=== PATIENT | male | born 1940 | race Caucasian/White ===

== ENCOUNTER 2018-05-27 08:38 | Day surgery (SDC) | payer MEDICARE, BC, SELFPAY ==
--- NOTE | 2018-05-26 12:07 | POEE_ITS ---
History of Present Illness Chief Complaint: Progressive decreased vision, right eye Narrative: Patient is a 78-year-old male with history of multiple sclerosis who presented with complaints of progressive decreased vision in both eyes at both distance and near. On examination he was noted to have moderately advanced bilateral nuclear and cortical cataracts with visual acuity of 20/40 OD, 20/60 OS. The option of cataract surgery was offered to the patient and he wished to proceed. NOTE: The Chief Complaint, HPI, Past Medical History, Past Surgical History, Family History, Social History, Medications, and complete Ophthalmic Exam with detailed Assessment and Plan have already been documented in the patient's outpatient ophthalmic record and are not covered again in detail here. [facility] Family History Mother No problems noted. Father Heart disease Hyperlipidemia Sister Diabetes Brother No problems noted. Grandfather No problems noted. Grandfather No problems noted. Grandmother No problems noted. Grandmother No problems noted. Medical History Cortical cataract of right eye (Acute) Nuclear sclerotic cataract of right eye (Acute) Social History household members: other details: 4 current occupational status: retired frequency: 1-2 times per week duration: 30-45 minutes/day Smoking/Tobacco Use Status: Former Tobacco Use alcohol intake: never Meds Home Medications Medication Instructions Recorded Confirmed Type cholecalciferol (vitamin D3) 5,000 unit PO DAILY 11/22/12 05/10/18 History baclofen 10 mg PO TID #270 tab-cap 05/07/15 05/10/18 History cyanocobalamin (vitamin B-12) 1,000 mcg PO DAILY 06/19/15 05/24/18 History amlodipine 5 mg-benazepril 20 mg 1 cap PO DAILY #90 cap 04/22/18 05/24/18 Rx capsule methylphenidate 10 mg tablet 10 mg PO BID #60 tab-cap 04/29/18 05/10/18 Rx pravastatin 20 mg tablet 20 mg PO DAILY #90 tab-cap 05/03/18 05/24/18 Rx Allergies Allergy/AdvReac Type Severity Reaction Status Date / Time weed pollen Allergy Intermediate sneezing, Verified 05/10/18 15:13 body aches and pains Exam OCULAR EXAM:: Visual acuity at distance: 20/40 OD, 20/60 OS Pupils: Pupils equal, round, and reactive without afferent pupillary defect IOP: 13 OD 14 OS Extraocular Motility: Normal Pertinent Slit Lamp Findings: Significant for pupils dilating to 6 mm OU. 3+ brunescent nuclear cataract OU with 1+ cortical cataract. Dilated Funduscopic Examination: Disc cupping is 0.3 OU with normal color. The optic nerves have good perfusion and normal color. The retinal vasculature is normal without significant tortuosity or abnormality. The maculas are normal in appearance with normal contour and foveal reflex appropriate for age. The peripheral retina and vitreous are normal. BRIGHTNESS ACUITY TESTING (BAT):: Off right eye 20/40 Low: 20/40 Medium: 20/50 High: 20/50 Assessment and Plan (1) Nuclear sclerotic cataract of right eye: Current visit: No Status: Acute Assessment: Visually significant cataract, right eye. Plan: Cataract extraction with intraocular lens implantation, right eye (2) Cortical cataract of right eye: Current visit: No Status: Acute Assessment: Visually significant cataract, right eye. Plan: Cataract extraction with intraocular lens implantation, right eye Note: NOTE:: The details of the planned surgery, including the risks, indications, limitations,expectations,outcome and possible complications were explained to the patient. The patient understands the complications including, but not limited to: infection, hemorrhage, posterior dislocation of the lens or nuclear fragments which may require the intervention of a vitreoretinal surgeon, possible loss of the eye, or from anesthetic complications. The patient has been made aware of the option of not having surgery, that vision following surgery may not be equal to that prior to surgery, and that the planned surgery may not achieve the intended results. Following this discussion, which the patient appeared to understand, the patient wishes to proceed with cataract surgery with lens implantation of the affected eye to improve and maximize vision.
--- NOTE | 2018-05-27 07:22 | W.PM.DSUDISC ---
Discharge Plan Discharge Details Reason For Visit: CATARACT OD Attending Provider: Erik Varela Primary Care Provider: Jayesh Duran Home Meds and New Rx's Prescriptions: No Action cholecalciferol (vitamin D3) 5,000 UNIT tablet 5,000 unit PO DAILY RF: 0 baclofen 10 MG tablet 10 mg PO TID Qty: 270 RF: 3 cyanocobalamin (vitamin B-12) 1,000 MCG tablet 1,000 mcg PO DAILY RF: 0 amlodipine-benazepril [Lotrel] 5-20 mg capsule 1 cap PO DAILY Qty: 90 RF: 4 methylphenidate HCl 10 mg tablet 10 mg PO BID Qty: 60 RF: 0 pravastatin [Pravachol] 20 mg tablet 20 mg PO DAILY Qty: 90 RF: 3 Discharge Instructions Stand Alone Forms: Post-op Topical Cataract, Jovan Sorensen (DSU) DS: Diagnosis Discharge Diagnosis (1) Nuclear sclerotic cataract of right eye: Status: Resolved (2) Cortical cataract of right eye: Status: Resolved (3) Status post cataract extraction and insertion of intraocular lens of right eye: Status: Chronic
--- NOTE | 2018-05-27 07:36 | W.PM.OP ---
Date of service: 05/27/18 Operative Note DATE OF PROCEDURE: 05/27/18 PRE-OP DIAGNOSIS: Cataract, right eye POST-OP DIAGNOSIS: same SURGEON: Erik Varela ANESTHESIA: MAC and local (sub-tenon's anesthetic infiltration) PATHOLOGY: none sent COMPLICATIONS: None Patient was transported to: same day Patient's condition: stable Implants: Cash [employer] Cash Vision / [employer] Tecnis [id number] Indications: Progressive decreased vision due to cataract, right eye Procedure Description: CATARACT SURGERY OPERATIVE REPORT PREOPERATIVE DIAGNOSIS: Nuclear/cortical cataract, right eye POSTOPERATIVE DIAGNOSIS: Same OPERATION: Cataract extraction using phacoemulsification with posterior chamber intraocular lens implant, right eye. IOL: IOL Teacher Of The Deaf/Hard Of Hearing/Model: [employer] Vision / MARCELINA Tecnis ZCB00 IOL Power: +[] diopters IOL Serial Number: [] Optic Diameter: 6.0mm Haptic/Overall Diameter: 13.0mm PHACO INFO: LoiAirwareurion Vision System with OZil and Active Fluidics Cumulative Dispersed Energy (CDE): [] seconds SURGEON: Erik Varela MD, ASPEN ANESTHESIA: Monitored Anesthesia Care (MAC), with local sub-tenon's anesthetic infiltration COMPLICATIONS: None SPECIMENS: None INDICATIONS FOR PROCEDURE: [] PROCEDURE: The correct surgical eye was identified and marked as the right eye and the pupil was dilated in the preoperative area using mydriatics, cycloplegics, and NSAIDS (except in aspirin allergic patients). The dilated pupil size was [] mm. Oral sedation was administered in the form of an Imprimis MKO Melt (midazolam 3mg/ketamine 25mg/ondansetron 2mg). The patient was brought to the operating room where cardiopulmonary monitoring was instituted and surgical time-out was performed, confirming the correct operative eye and IOL power. Topical anesthesia was administered and ophthalmic povidone-iodine 5% was instilled into the conjunctival fornices. Lidocaine gel was applied to the cornea and the justin-ocular area was prepped with Betadine 10% solution and draped in the usual sterile fashion for intraocular surgery. Steri-strips were used to cover the lashes and lid margins and an adhesive eye drape was placed. Care was taken to isolate the lashes and lid margins under the Steri-strips and adhesive eye drape. A lid speculum was placed between the lids of the operative eye and the Rupert-Damián operating microscope was maneuvered into position. Denise scissors were then used to make a conjunctival buttonhole approximately 6mm posterior to the limbus in the inferonasal quadrant. Blunt dissection was carried out to expose bare sclera, and a blunt-tipped sub-tenon?s anesthesia cannula was introduced and passed posteriorly along the globe where non-preserved plain lidocaine was injected into posterior sub-Tenon?s space. A sideport knife was used to make a paracentesis port at the 7:00 postion and the anterior chamber was filled with Healon GV. A 2.4mm keratome knife was used to create a half-thickness groove at the limbus and then to construct a three-plane near-clear corneal tunnel extending 2.0mm into clear cornea at the 10:00 position. A flap was raised on the anterior capsule and capsulorhexis forceps were used to complete a continuous curvilinear capsulorhexis of []mm. Balanced salt solution was then used to perform cortical cleaving hydrodissection and nuclear hydrodelineation until the lens could be freely rotated within the capsular bag. The lens nucleus was then disassembled and removed within the capsular bag and iris plane using phacoemulsification. Residual cortical material was removed using the 45-degree angled silicone I/A tip with 0.3mm port. The posterior capsule was carefully polished to remove as much residual lens epithelial cells as safely possible. The capsular bag was then inflated and the anterior chamber deepened with viscoelastic. The lens implant described above was inserted into the capsular bag using the MARCELINA [place] Injector. A Kuglen hook was used to dial the IOL into position. Residual viscoelastic was then removed first from posterior to the IOL, then from the anterior chamber using the I/A handpiece. The lens implant was noted to center nicely within the capsular bag. The incisions were stromally hydrated, and the anterior chamber was reformed using BSS. Then 0.4cc of moxifloxacin 1.5mg/ml were injected into the capsular bag and anterior chamber. The incisions were checked with a Weck spear and found to be secure. Several drops of ophthalmic povidone-iodine 5% were then applied to the eye followed by two drops of Imprimis combination moxifloxacin/dexamethasone solution. The drapes were removed and a clear plastic protective eye shield was placed over the eye. The patient was then returned to Same Day Surgery in stable condition.
[2018-05-27 08:50] VITALS: BP 146/91; PULSE 83; RESP 16; TEMP 35.7; O2SAT 99
[2018-05-27] MEDS: Balanced Salt Soln.-PLUS 500 ML BAG (11:50)
[2018-05-27] MEDS: Lidocaine 2% Jelly 6 ML SYR (11:52)
[2018-05-27] MEDS: Povidone-Iodine Ophth 30 ML BTL (11:59)
[2018-05-27] MEDS: Lidocaine 1% Pres-Free 5 ML VIAL (11:59)
[2018-05-27] MEDS: Trypan Blue 0.06% 0.5 ML SYR (12:10)
--- NOTE | 2018-05-27 17:38 | W.PM.OP ---
Date of service: 05/27/18 Operative Note DATE OF PROCEDURE: 05/27/18 PRE-OP DIAGNOSIS: Cataract, right eye POST-OP DIAGNOSIS: same PROCEDURE: [employer] Vision / [employer] Tecnis [id number] SURGEON: Erik Varela ANESTHESIA: MAC and local (sub-tenon's anesthetic infiltration) PATHOLOGY: none sent COMPLICATIONS: None Patient was transported to: same day Patient's condition: stable Implants: Cash [employer] Cash Vision / [employer] Tecnis [id number] Indications: Progressive visual loss due to cataract, right eye Procedure Description: CATARACT SURGERY OPERATIVE REPORT PREOPERATIVE DIAGNOSIS: 1. Dense nuclear cataract with peripheral corneal haze 2. Poor red reflex secondary to #1 POSTOPERATIVE DIAGNOSIS: Same OPERATION: 1. Cataract extraction using phacoemulsification with posterior chamber intraocular lens implant, right eye. 2. Capsular staining with Vision Blue IOL: IOL Tobacco Stripper Hand/Model: [employer] Cash / MARCELINA Tecnis ZCB00 IOL Power: + 23.5 diopters IOL Serial Number: [id number] Optic Diameter: 6.0mm Haptic/Overall Diameter: 13.0mm PHACO INFO: Loi mydalaurion Vision System with OZil and Active Fluidics Cumulative Dispersed Energy (CDE): 18.66 seconds SURGEON: Erik Varela MD, ASPEN ANESTHESIA: Monitored Anesthesia Care (MAC), with local sub-tenon's anesthetic infiltration COMPLICATIONS: None SPECIMENS: None INDICATIONS FOR PROCEDURE: The patient is a 78-year-old gentleman with history of diminished visual acuity in both eyes. He is noted to have dense bilateral nuclear cataracts as well as a prominent corneal arcus OU. The option of cataract surgery was offered to the patient and he wished to proceed. He has a very hazy peripheral cornea with poor red reflex due to dense cataract. PROCEDURE: The correct surgical eye was identified and marked as the right eye and the pupil was dilated in the preoperative area using mydriatics, cycloplegics, and NSAIDS (except in aspirin allergic patients). The dilated pupil size was 6.0 mm. The patient elected to proceed without oral sedation. The patient was brought to the operating room where cardiopulmonary monitoring was instituted and surgical time-out was performed, confirming the correct operative eye and IOL power. Topical anesthesia was administered and ophthalmic povidone-iodine 5% was instilled into the conjunctival fornices. Lidocaine gel was applied to the cornea and the justin-ocular area was prepped with Betadine 10% solution and draped in the usual sterile fashion for intraocular surgery. Steri-strips were used to cover the lashes and lid margins and an adhesive eye drape was placed. Care was taken to isolate the lashes and lid margins under the Steri-strips and adhesive eye drape. A lid speculum was placed between the lids of the operative eye and the Rupert-Damián operating microscope was maneuvered into position. Denise scissors were then used to make a conjunctival buttonhole approximately 6mm posterior to the limbus in the inferonasal quadrant. Blunt dissection was carried out to expose bare sclera, and a blunt-tipped sub-tenon?s anesthesia cannula was introduced and passed posteriorly along the globe where non-preserved plain lidocaine was injected into posterior sub-Tenon?s space. A sideport knife was used to make a paracentesis port at the 7:00 position. Air was injected into the anterior chamber, followed by Vision Blue, which was painted over the anterior capsule and then irrigated out with BSS. The anterior chamber was filled with Healon GV. A 2.4mm keratome knife was used to create a half-thickness groove at the limbus and then to construct a three-plane near-clear corneal tunnel extending 2.0mm into clear cornea at the 10:00 position. A flap was raised on the anterior capsule and capsulorhexis forceps were used to complete a continuous curvilinear capsulorhexis of 4.5 mm. The anterior chamber was noted to be quite deep. The patient had a prominent arcus, which limited visualization to the central 6 mm. Balanced salt solution was then used to perform cortical cleaving hydrodissection and nuclear hydrodelineation until the lens could be freely rotated within the capsular bag. The lens nucleus was then disassembled and removed within the capsular bag and iris plane using phacoemulsification. Residual cortical material was removed using the 45-degree angled silicone I/A tip with 0.3mm port. The posterior capsule was carefully polished to remove as much residual lens epithelial cells as safely possible. There was some residual subincisional cortical material which was densely adherent which could not be safely removed. The capsular bag was then inflated and the anterior chamber deepened with viscoelastic. The lens implant described above was inserted into the capsular bag using the [employer] Injector. A Kuglen hook was used to dial the IOL into position. Residual viscoelastic was then removed first from posterior to the IOL, then from the anterior chamber using the I/A handpiece. The lens implant was noted to center nicely within the capsular bag. The incisions were stromally hydrated, and the anterior chamber was reformed using BSS. Then 0.4cc of moxifloxacin 1.5mg/ml were injected into the capsular bag and anterior chamber. The incisions were checked with a Weck spear and found to be secure. Several drops of ophthalmic povidone-iodine 5% were then applied to the eye followed by two drops of Imprimis combination moxifloxacin/dexamethasone solution. The drapes were removed and a clear plastic protective eye shield was placed over the eye. The patient was then returned to Same Day Surgery in stable condition.
--- NOTE | 2018-05-27 17:43 | ROE_ITS ---
Date of service: 05/27/18 Operative Note DATE OF PROCEDURE: 05/27/18 PRE-OP DIAGNOSIS: Cataract, right eye POST-OP DIAGNOSIS: same PROCEDURE: [employer] Vision / [employer] Tecnis [id number] SURGEON: Erik Varela ANESTHESIA: MAC and local (sub-tenon's anesthetic infiltration) PATHOLOGY: none sent COMPLICATIONS: None Patient was transported to: same day Patient's condition: stable Implants: Cash [employer] Cash Vision / [employer] Tecnis [id number] Indications: Progressive visual loss due to cataract, right eye Procedure Description: CATARACT SURGERY OPERATIVE REPORT PREOPERATIVE DIAGNOSIS: 1. Dense nuclear cataract with peripheral corneal haze 2. Poor red reflex secondary to #1 POSTOPERATIVE DIAGNOSIS: Same OPERATION: 1. Cataract extraction using phacoemulsification with posterior chamber intraocular lens implant, right eye. 2. Capsular staining with Vision Blue IOL: IOL Head Nurse/Model: Cash [employer] Cash / MARCELINA Tecnis ZCB00 IOL Power: + 23.5 diopters IOL Serial Number: [id number] Optic Diameter: 6.0mm Haptic/Overall Diameter: 13.0mm PHACO INFO: Loi Callvineurion Vision System with OZil and Active Fluidics Cumulative Dispersed Energy (CDE): 18.66 seconds SURGEON: Erik Varela MD, ASPEN ANESTHESIA: Monitored Anesthesia Care (MAC), with local sub-tenon's anesthetic infiltration COMPLICATIONS: None SPECIMENS: None INDICATIONS FOR PROCEDURE: The patient is a 78-year-old gentleman with history of diminished visual acuity in both eyes. He is noted to have dense bilateral nuclear cataracts as well as a prominent corneal arcus OU. The option of cataract surgery was offered to the patient and he wished to proceed. He has a very hazy peripheral cornea with poor red reflex due to dense cataract. PROCEDURE: The correct surgical eye was identified and marked as the right eye and the pupil was dilated in the preoperative area using mydriatics, cycloplegics, and NSAIDS (except in aspirin allergic patients). The dilated pupil size was 6.0 mm. The patient elected to proceed without oral sedation. The patient was brought to the operating room where cardiopulmonary monitoring was instituted and surgical time-out was performed, confirming the correct operative eye and IOL power. Topical anesthesia was administered and ophthalmic povidone-iodine 5% was instilled into the conjunctival fornices. Lidocaine gel was applied to the cornea and the justin-ocular area was prepped with Betadine 10% solution and draped in the usual sterile fashion for intraocular surgery. Steri-strips were used to cover the lashes and lid margins and an adhesive eye drape was placed. Care was taken to isolate the lashes and lid margins under the Steri-strips and adhesive eye drape. A lid speculum was placed between the lids of the operative eye and the Rupert-Damián operating microscope was maneuvered into position. Denise scissors were then used to make a conjunctival buttonhole approximately 6mm posterior to the limbus in the inferonasal quadrant. Blunt dissection was carried out to expose bare sclera, and a blunt-tipped sub-tenon? s anesthesia cannula was introduced and passed posteriorly along the globe where non-preserved plain lidocaine was injected into posterior sub-Tenon?s space. A sideport knife was used to make a paracentesis port at the 7:00 position. Air was injected into the anterior chamber, followed by Vision Blue, which was painted over the anterior capsule and then irrigated out with BSS. The anterior chamber was filled with Healon GV. A 2.4mm keratome knife was used to create a half-thickness groove at the limbus and then to construct a three-plane near-clear corneal tunnel extending 2.0mm into clear cornea at the 10:00 position. A flap was raised on the anterior capsule and capsulorhexis forceps were used to complete a continuous curvilinear capsulorhexis of 4.5 mm. The anterior chamber was noted to be quite deep. The patient had a prominent arcus, which limited visualization to the central 6 mm. Balanced salt solution was then used to perform cortical cleaving hydrodissection and nuclear hydrodelineation until the lens could be freely rotated within the capsular bag. The lens nucleus was then disassembled and removed within the capsular bag and iris plane using phacoemulsification. Residual cortical material was removed using the 45-degree angled silicone I/A tip with 0.3mm port. The posterior capsule was carefully polished to remove as much residual lens epithelial cells as safely possible. There was some residual subincisional cortical material which was densely adherent which could not be safely removed. The capsular bag was then inflated and the anterior chamber deepened with viscoelastic. The lens implant described above was inserted into the capsular bag using the [employer] [place] Injector. A Kuglen hook was used to dial the IOL into position. Residual viscoelastic was then removed first from posterior to the IOL, then from the anterior chamber using the I/A handpiece. The lens implant was noted to center nicely within the capsular bag. The incisions were stromally hydrated , and the anterior chamber was reformed using BSS. Then 0.4cc of moxifloxacin 1.5mg/ml were injected into the capsular bag and anterior chamber. The incisions were checked with a Weck spear and found to be secure. Several drops of ophthalmic povidone-iodine 5% were then applied to the eye followed by two drops of Imprimis combination moxifloxacin/dexamethasone solution. The drapes were removed and a clear plastic protective eye shield was placed over the eye. The patient was then returned to Same Day Surgery in stable condition.
== END 2018-05-27 13:10 | disposition home or self-care (01) ==
LOC: SUR 08:38
PROVIDERS: PCP Emergency Medicine; Visit Provider Ophthalmology
PROC: (CPT 66982; principal; 2018-05-27 11:00)
DX: H25.11 Age-related nuclear cataract, right eye (principal); H35.89 Other specified retinal disorders; I10 Essential (primary) hypertension
CPT/HCPCS: 66982; V2632

== ENCOUNTER 2018-06-10 07:37 | Day surgery (SDC) | payer MEDICARE, BC, SELFPAY ==
--- NOTE | 2018-06-09 12:02 | POEE_ITS ---
History of Present Illness Chief Complaint: Progressive decreased vision, left eye Narrative: NOTE: The Chief Complaint, HPI, Past Medical History, Past Surgical History, Family History, Social History, Medications, and complete Ophthalmic Exam with detailed Assessment and Plan have already been documented in the patient's outpatient ophthalmic record and are not covered again in detail here. PFSH Family History Mother No problems noted. Father Heart disease Hyperlipidemia Sister Diabetes Brother No problems noted. Grandfather No problems noted. Grandfather No problems noted. Grandmother No problems noted. Grandmother No problems noted. Medical History Cortical cataract of right eye (Resolved) Nuclear sclerotic cataract of right eye (Resolved) Social History household members: other details: 4 current occupational status: retired frequency: 1-2 times per week duration: 30-45 minutes/day Smoking/Tobacco Use Status: Former Tobacco Use alcohol intake: never Surgical History Status post cataract extraction and insertion of intraocular lens of right eye ( Chronic 05/27/18) Meds Home Medications Medication Instructions Recorded Confirmed Type cholecalciferol (vitamin D3) 5,000 unit PO DAILY 11/22/12 05/10/18 History baclofen 10 mg PO TID #270 tab-cap 05/07/15 05/27/18 History cyanocobalamin (vitamin B-12) 1,000 mcg PO DAILY 06/19/15 05/10/18 History amlodipine 5 mg-benazepril 20 mg 1 cap PO DAILY #90 cap 04/22/18 05/27/18 Rx capsule methylphenidate 10 mg tablet 10 mg PO BID #60 tab-cap 04/29/18 05/27/18 Rx pravastatin 20 mg tablet 20 mg PO DAILY #90 tab-cap 05/03/18 05/27/18 Rx Allergies Allergy/AdvReac Type Severity Reaction Status Date / Time weed pollen Allergy Intermediate sneezing, Verified 05/27/18 08:45 body aches and pains Exam OCULAR EXAM:: Visual acuity at distance: [] Pupils: [] IOP: [] Extraocular Motility: [] Pertinent Slit Lamp Findings: [] Dilated Funduscopic Examination: [] BRIGHTNESS ACUITY TESTING (BAT):: Off [] Low:[] Medium:[] High:[] Note: NOTE:: The details of the planned surgery, including the risks, indications, limitations,expectations,outcome and possible complications were explained to the patient. The patient understands the complications including, but not limited to: infection, hemorrhage, posterior dislocation of the lens or nuclear fragments which may require the intervention of a vitreoretinal surgeon, possible loss of the eye, or from anesthetic complications. The patient has been made aware of the option of not having surgery, that vision following surgery may not be equal to that prior to surgery, and that the planned surgery may not achieve the intended results. Following this discussion, which the patient appeared to understand, the patient wishes to proceed with cataract surgery with lens implantation of the affected eye to improve and maximize vision.
--- NOTE | 2018-06-09 12:07 | POEE_ITS ---
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 He was significantly symptomatic from cataract that he desired cataract surgery which was performed OD on 05/27/18. Best corrected vision has improved to 20/25 OD, he now presents for ce/iol OS. NOTE: The Chief Complaint, HPI, Past Medical History, Past Surgical History, Family History, Social History, Medications, and complete Ophthalmic Exam with detailed Assessment and Plan have already been documented in the patient's outpatient ophthalmic record and are not covered again in detail here. FOR[facility]LY [facility], [facility] Family History Mother No problems noted. Father Heart disease Hyperlipidemia Sister Diabetes Brother No problems noted. Grandfather No problems noted. Grandfather No problems noted. Grandmother No problems noted. Grandmother No problems noted. Medical History Cortical cataract of left eye (Acute) Nuclear sclerotic cataract of left eye (Acute) Cortical cataract of right eye (Resolved) Nuclear sclerotic cataract of right eye (Resolved) Social History household members: other details: 4 current occupational status: retired frequency: 1-2 times per week duration: 30-45 minutes/day Smoking/Tobacco Use Status: Former Tobacco Use alcohol intake: never Surgical History Status post cataract extraction and insertion of intraocular lens of right eye ( Chronic 05/27/18) Meds Home Medications Medication Instructions Recorded Confirmed Type cholecalciferol (vitamin D3) 5,000 unit PO DAILY 11/22/12 05/10/18 History baclofen 10 mg PO TID #270 tab-cap 05/07/15 05/27/18 History cyanocobalamin (vitamin B-12) 1,000 mcg PO DAILY 06/19/15 05/10/18 History amlodipine 5 mg-benazepril 20 mg 1 cap PO DAILY #90 cap 04/22/18 05/27/18 Rx capsule methylphenidate 10 mg tablet 10 mg PO BID #60 tab-cap 04/29/18 05/27/18 Rx pravastatin 20 mg tablet 20 mg PO DAILY #90 tab-cap 05/03/18 05/27/18 Rx Allergies Allergy/AdvReac Type Severity Reaction Status Date / Time weed pollen Allergy Intermediate sneezing, Verified 05/27/18 08:45 body aches and pains Exam OCULAR EXAM:: Visual acuity at distance: Best corrected 20/25 right eye, 20/40 left eye. Pupils: Pupils equal, round, and reactive without afferent pupillary defect IOP: 13 OD 14 OS Extraocular Motility: Normal Pertinent Slit Lamp Findings: Significant for pupils dilating to 6 mm OU. Well- positioned PCIOL OD with clear posterior capsule. 3+ nuclear with 1+ cortical cataract OS. Dilated Funduscopic Examination: Disc cupping is 0.3 OU with good color. The optic nerves have good perfusion and normal color. The retinal vasculature is normal without significant tortuosity or abnormality. The maculas are normal in appearance with normal contour and foveal reflex appropriate for age. The peripheral retina and vitreous are normal. BRIGHTNESS ACUITY TESTING (BAT):: Off left eye 20/50 Low: 20/50 Medium: 20/70 High: 20/100 Assessment and Plan (1) Nuclear sclerotic cataract of left eye: Current visit: No Status: Acute Assessment: Visually significant cataract, left eye. Plan: Cataract extraction with intraocular lens implantation, left eye (2) Cortical cataract of left eye: Current visit: No Status: Acute Assessment: Visually significant cataract, left eye. Plan: Cataract extraction with intraocular lens implantation, left eye Note: NOTE:: The details of the planned surgery, including the risks, indications, limitations,expectations,outcome and possible complications were explained to the patient. The patient understands the complications including, but not limited to: infection, hemorrhage, posterior dislocation of the lens or nuclear fragments which may require the intervention of a vitreoretinal surgeon, possible loss of the eye, or from anesthetic complications. The patient has been made aware of the option of not having surgery, that vision following surgery may not be equal to that prior to surgery, and that the planned surgery may not achieve the intended results. Following this discussion, which the patient appeared to understand, the patient wishes to proceed with cataract surgery with lens implantation of the affected eye to improve and maximize vision.
[2018-06-10 07:51] VITALS: BP 123/79; PULSE 77; RESP 16; TEMP 35.6; O2SAT 98
[2018-06-10] MEDS: Tetracaine 0.5% 4 ML BTL OS ×4 (08:07→09:20)
[2018-06-10] MEDS: Tropicam./Phenyleph. (1/2.5%) 5 ML BTL ×3 (08:07→08:14)
[2018-06-10] MEDS: Lidocaine 2% Jelly 6 ML SYR (09:20)
[2018-06-10] MEDS: Balanced Salt Soln.-PLUS 500 ML BAG (09:25)
[2018-06-10] MEDS: Lidocaine 1% Pres-Free 5 ML VIAL (09:25)
[2018-06-10] MEDS: Trypan Blue 0.06% 0.5 ML SYR (09:30)
[2018-06-10] MEDS: Povidone-Iodine Ophth 30 ML BTL (09:50)
--- NOTE | 2018-06-10 10:00 | W.PM.DSUDISC ---
Discharge Plan Discharge Details Reason For Visit: CATARACT OS Attending Provider: Erik Varela Primary Care Provider: Jayesh Duran Home Meds and New Rx's Prescriptions: No Action cholecalciferol (vitamin D3) 5,000 UNIT tablet 5,000 unit PO DAILY RF: 0 baclofen 10 MG tablet 10 mg PO TID Qty: 270 RF: 3 cyanocobalamin (vitamin B-12) 1,000 MCG tablet 1,000 mcg PO DAILY RF: 0 amlodipine-benazepril [Lotrel] 5-20 mg capsule 1 cap PO DAILY Qty: 90 RF: 4 methylphenidate HCl 10 mg tablet 10 mg PO BID Qty: 60 RF: 0 pravastatin [Pravachol] 20 mg tablet 20 mg PO DAILY Qty: 90 RF: 3 Discharge Instructions Stand Alone Forms: Post-op Topical Cataract, Jovan Sorensen (DSU) DS: Diagnosis Discharge Diagnosis (1) Nuclear sclerotic cataract of left eye: Status: Resolved (2) Cortical cataract of left eye: Status: Resolved (3) Status post cataract extraction and insertion of intraocular lens of left eye: Status: Chronic (4) Status post cataract extraction and insertion of intraocular lens of right eye: Status: Chronic
--- NOTE | 2018-06-10 10:04 | W.PM.OP ---
Date of service: 06/10/18 Time of Service: 10:04 Operative Note DATE OF PROCEDURE: 06/10/18 PRE-OP DIAGNOSIS: Cataract, left eye, with poor red reflex POST-OP DIAGNOSIS: same PROCEDURE: Cataract extraction using phacoemulsification with intraocular lens implant, left eye, using capsular staining with Vision Blue SURGEON: Erik Varela ANESTHESIA: MAC (with local sub-tenon's anesthetic injection) COMPLICATIONS: None Patient was transported to: same day Patient's condition: stable Implants: Cash and Cash / [employer] Tecnis [id number] Indications: Progressive decreased vision due to cataract, left eye, with poor red reflex Procedure Description: CATARACT SURGERY OPERATIVE REPORT PREOPERATIVE DIAGNOSIS: 1. Dense nuclear cataract, left eye, with dense corneal arcus 2. Poor red reflex secondary to #1 POSTOPERATIVE DIAGNOSIS: Same OPERATION: 1. Cataract extraction using phacoemulsification with posterior chamber intraocular lens implant, left eye. 2. Capsular staining with Vision Blue IOL: IOL Branch Examiner/Model: Cash & Cash / MARCELINA Tecnis [id number] IOL Power: + 20.5 diopters IOL Serial Number: [id number] Optic Diameter: 6.0 mm Haptic/Overall Diameter: 13.0 mm PHACO INFO: Loi Centurion Vision System with OZil and Active Fluidics Cumulative Dispersed Energy (CDE): 15.0 to seconds SURGEON: Erik Varela MD, ASPEN ANESTHESIA: Monitored [facility] (MAC), with local sub-tenon's anesthetic infiltration COMPLICATIONS: None SPECIMENS: None INDICATIONS FOR PROCEDURE: The patient is a 78-year-old male with history of dense bilateral nuclear cataracts. He was significantly symptomatically he desired cataract surgery and attempt to improve and maximize his vision. He has already undergone cataract surgery in the right eye and is doing well postoperatively. He now presents for cataract surgery in the left eye. He has very dense corneal arcus OU PROCEDURE: The correct surgical eye was identified and marked as the left eye and the pupil was dilated in the preoperative area using mydriatics and cycloplegics. Elected to proceed without oral sedation the patient was brought to the operating room where cardiopulmonary monitoring was instituted and surgical time-out was performed, confirming the correct operative eye and IOL power. Topical anesthesia was administered and ophthalmic povidone-iodine 5% was instilled into the conjunctival fornices. Lidocaine gel was applied to the cornea and the justin-ocular area was prepped with Betadine 10% solution and draped in the usual sterile fashion for intraocular surgery. Steri-strips were used to cover the lashes and lid margins and an adhesive eye drape was placed. Care was taken to isolate the lashes and lid margins under the Steri-strips and adhesive eye drape. A lid speculum was placed between the lids of the operative eye and the Rupert-Damián operating microscope was maneuvered into position. Denise scissors were then used to make a conjunctival buttonhole approximately 6mm posterior to the limbus in the inferonasal quadrant. Blunt dissection was carried out to expose bare sclera, and a blunt-tipped sub-tenon?s anesthesia cannula was introduced and passed posteriorly along the globe where non-preserved plain lidocaine was injected into posterior sub-Tenon?s space. A sideport knife was used to make a paracentesis port at the 12:00 position. Air was injected into the anterior chamber, followed by Vision Blue, which was painted over the anterior capsule and then irrigated out using BSS. The anterior chamber was filled with Healon GV. A 2.4mm keratome knife was used to create a half-thickness groove at the limbus and then to construct a three-plane near-clear corneal tunnel extending 2.0mm into clear cornea at the 3:00 position. A flap was raised on the anterior capsule and capsulorhexis forceps were used to complete a continuous curvilinear capsulorhexis of 4.5 mm. Visualization was challenging due to dense peripheral corneal arcus Balanced salt solution was then used to perform cortical cleaving hydrodissection and nuclear hydrodelineation until the lens could be freely rotated within the capsular bag. The lens nucleus was then disassembled and removed within the capsular bag and iris plane using phacoemulsification. Residual cortical material was removed using the 45-degree angled silicone I/A tip with 0.3mm port. The posterior capsule was carefully polished to remove as much residual lens epithelial cells as safely possible. The capsular bag was then inflated and the anterior chamber deepened with viscoelastic. The lens implant described above was inserted into the capsular bag using the MARCELINA [place] Injector. A Kuglen hook was used to dial the IOL into position. Residual viscoelastic was then removed first from posterior to the IOL, then from the anterior chamber using the I/A handpiece. The lens implant was noted to center nicely within the capsular bag. The incisions were stromally hydrated, and the anterior chamber was reformed using BSS. Then 0.4cc of moxifloxacin 1.5mg/ml were injected into the capsular bag and anterior chamber. The incisions were checked with a Weck spear and found to be secure. Several drops of ophthalmic povidone-iodine 5% were then applied to the eye followed by two drops of Imprimis combination moxifloxacin/dexamethasone solution. The drapes were removed and a clear plastic protective eye shield was placed over the eye. The patient was then returned to Same Day Surgery in stable condition.
--- NOTE | 2018-06-10 10:08 | ROE_ITS ---
Date of service: 06/10/18 Time of Service: 10:04 Operative Note DATE OF PROCEDURE: 06/10/18 PRE-OP DIAGNOSIS: Cataract, left eye, with poor red reflex POST-OP DIAGNOSIS: same PROCEDURE: Cataract extraction using phacoemulsification with intraocular lens implant, left eye, using capsular staining with Vision Blue SURGEON: Erik Varela ANESTHESIA: MAC (with local sub-tenon's anesthetic injection) COMPLICATIONS: None Patient was transported to: same day Patient's condition: stable Implants: Cash and Cash / [employer] Tecnis [id number] Indications: Progressive decreased vision due to cataract, left eye, with poor red reflex Procedure Description: CATARACT SURGERY OPERATIVE REPORT PREOPERATIVE DIAGNOSIS: 1. Dense nuclear cataract, left eye, with dense corneal arcus 2. Poor red reflex secondary to #1 POSTOPERATIVE DIAGNOSIS: Same OPERATION: 1. Cataract extraction using phacoemulsification with posterior chamber intraocular lens implant, left eye. 2. Capsular staining with Vision Blue IOL: IOL Tank Pumper Panelboard/Model: Cash & Cash / MARCELINA Tecnis [id number] IOL Power: + 20.5 diopters IOL Serial Number: [id number] Optic Diameter: 6.0 mm Haptic/Overall Diameter: 13.0 mm PHACO INFO: Loi [employer]ion Vision System with OZil and Active Fluidics Cumulative Dispersed Energy (CDE): 15.0 to seconds SURGEON: Erik Varela MD, ASPEN ANESTHESIA: Monitored [facility] (MAC), with local sub-tenon's anesthetic infiltration COMPLICATIONS: None SPECIMENS: None INDICATIONS FOR PROCEDURE: The patient is a 78-year-old male with history of dense bilateral nuclear cataracts. He was significantly symptomatically he desired cataract surgery and attempt to improve and maximize his vision. He has already undergone cataract surgery in the right eye and is doing well postoperatively. He now presents for cataract surgery in the left eye. He has very dense corneal arcus OU PROCEDURE: The correct surgical eye was identified and marked as the left eye and the pupil was dilated in the preoperative area using mydriatics and cycloplegics. Elected to proceed without oral sedation the patient was brought to the operating room where cardiopulmonary monitoring was instituted and surgical time-out was performed, confirming the correct operative eye and IOL power. Topical anesthesia was administered and ophthalmic povidone-iodine 5% was instilled into the conjunctival fornices. Lidocaine gel was applied to the cornea and the justin-ocular area was prepped with Betadine 10% solution and draped in the usual sterile fashion for intraocular surgery. Steri-strips were used to cover the lashes and lid margins and an adhesive eye drape was placed. Care was taken to isolate the lashes and lid margins under the Steri-strips and adhesive eye drape. A lid speculum was placed between the lids of the operative eye and the Rupert-Damián operating microscope was maneuvered into position. Denise scissors were then used to make a conjunctival buttonhole approximately 6mm posterior to the limbus in the inferonasal quadrant. Blunt dissection was carried out to expose bare sclera, and a blunt-tipped sub-tenon? s anesthesia cannula was introduced and passed posteriorly along the globe where non-preserved plain lidocaine was injected into posterior sub-Tenon?s space. A sideport knife was used to make a paracentesis port at the 12:00 position. Air was injected into the anterior chamber, followed by Vision Blue, which was painted over the anterior capsule and then irrigated out using BSS. The anterior chamber was filled with Healon GV. A 2.4mm keratome knife was used to create a half-thickness groove at the limbus and then to construct a three-plane near-clear corneal tunnel extending 2.0mm into clear cornea at the 3 :00 position. A flap was raised on the anterior capsule and capsulorhexis forceps were used to complete a continuous curvilinear capsulorhexis of 4.5 mm. Visualization was challenging due to dense peripheral corneal arcus Balanced salt solution was then used to perform cortical cleaving hydrodissection and nuclear hydrodelineation until the lens could be freely rotated within the capsular bag. The lens nucleus was then disassembled and removed within the capsular bag and iris plane using phacoemulsification. Residual cortical material was removed using the 45-degree angled silicone I/A tip with 0.3mm port. The posterior capsule was carefully polished to remove as much residual lens epithelial cells as safely possible. The capsular bag was then inflated and the anterior chamber deepened with viscoelastic. The lens implant described above was inserted into the capsular bag using the MARCELINA [place] Injector. A Kuglen hook was used to dial the IOL into position. Residual viscoelastic was then removed first from posterior to the IOL, then from the anterior chamber using the I/A handpiece. The lens implant was noted to center nicely within the capsular bag. The incisions were stromally hydrated , and the anterior chamber was reformed using BSS. Then 0.4cc of moxifloxacin 1.5mg/ml were injected into the capsular bag and anterior chamber. The incisions were checked with a Weck spear and found to be secure. Several drops of ophthalmic povidone-iodine 5% were then applied to the eye followed by two drops of Imprimis combination moxifloxacin/dexamethasone solution. The drapes were removed and a clear plastic protective eye shield was placed over the eye. The patient was then returned to Same Day Surgery in stable condition.
== END 2018-06-10 10:50 | disposition home or self-care (01) ==
LOC: SUR 07:37
PROVIDERS: PCP Emergency Medicine; Visit Provider Ophthalmology
PROC: (CPT 66982; principal; 2018-06-10 09:30)
DX: H25.12 Age-related nuclear cataract, left eye (principal); H35.89 Other specified retinal disorders; Z98.41 Cataract extraction status, right eye; Z96.1 Presence of intraocular lens; I10 Essential (primary) hypertension
CPT/HCPCS: 66982; V2632

== ENCOUNTER → 2019-02-27 14:02 | Outpatient (BNVA) | payer MEDICARE, BC, SELFPAY | PROVIDERS: PCP Emergency Medicine; Referring Provider Emergency Medicine; Visit Provider Physical Therapy Assistant | DX: Z86.010 Personal history of colon polyps (principal); R63.4 Abnormal weight loss; I10 Essential (primary) hypertension | CPT/HCPCS: 99213 ==

== ENCOUNTER 2019-03-02 02:20 | Outpatient (CLI) | payer MEDICARE, BC, SELFPAY ==
[2019-03-02 12:59] LABS: HCT 47.5 % (40.0-50.0); HGB 15.8 g/dL (13.5-17.5); Mean Corp. HGB Concentration 33.3 g/dL (32.0-36.0); Mean Corpuscular Hemoglobin 30.9 pg (27.0-33.0); Mean Corpuscular Volume 92.8 fL (80-95); Mean Platelet Volume 12.4 fL (8.0-11.0); Platelet Count 200 x1000/uL (130-400); RBC 5.12 m/cumm (4.50-6.00); White Blood Cell Count 9.26 k/cumm (4.4-10.8)
[2019-03-02 13:08] LABS: ALT 25 U/L (12-78); AST 14 U/L (15-37); Albumin 3.7 g/dL (3.4-5.0); Alkaline Phosphatase 68 U/L (46-116); Anion Gap 8.9 mmol/L (3-11); BUN 11 mg/dL (7-18); Bilirubin, Total 0.3 mg/dL (0.2-1.0); CO2 29.1 mmol/L (21.0-32.0); CREATININE 0.71 mg/dL (0.70-1.30); Calcium 8.8 mg/dL (8.5-10.1); Chloride 105 mmol/L (98-107); Glucose 92 mg/dL (70-100); Sodium 143 mmol/L (136-145); Total Protein 6.5 g/dL (6.4-8.2)
== END 2019-03-02 02:40 ==
PROVIDERS: PCP Emergency Medicine; Visit Provider Emergency Medicine
DX: R63.4 Abnormal weight loss (principal)
CPT/HCPCS: 36415; 80053; 85027

== ENCOUNTER 2019-03-06 00:33 | Outpatient (CLI) | payer MEDICARE, BC, SELFPAY ==
--- NOTE | 2019-03-06 08:33 | DI.US_ITS ---
SYMPTOM/DIAGNOSIS: AAA WITHOUT RUPTURE i 71.4 ABDOMINAL ULTRASOUND, LIMITED: 03/06 Ultrasound was performed to evaluate previously noted abdominal aortic aneurysm, measured at about 2.6 cm in diameter on previous study of 07/17/16. On today's examination note is again made of an infra-renal aneurysm measuring about 4.1 cm in greatest diameter. Common iliac arteries measure about 12 and 13 mm in diameter respectively for right and left common iliac. CONCLUSION: Abdominal aortic aneurysm, 4.1 cm greatest diameter. Prior examination of 07/17/16 showed maximal diameter of 3.6 cm.
== END 2019-03-06 00:53 ==
PROVIDERS: PCP Emergency Medicine; Visit Provider Emergency Medicine
DX: I71.4 Abdominal aortic aneurysm, without rupture (principal)
CPT/HCPCS: 76775

== ENCOUNTER 2019-03-30 06:20 | Day surgery (SDC) | payer MEDICARE, BC, SELFPAY ==
[2019-03-30 06:35] VITALS: BP 141/85; PULSE 68; RESP 14; TEMP 36.5; O2SAT 98
[2019-03-30] MEDS: Lactated Ringers 1,000 ML 80 ML IV (07:07)
--- NOTE | 2019-03-30 07:59 | BOWEL_PTH ---
PATIENT: Alex Paige LOC: [facility] U#:[id number] AGE/SX: 79/M ROOM: RE03/30/[address]: Jaci Hill : 1940 BED: DIS: 03/30/2019 SPEC #: [id number] RECD: 03/30/19 12:39 STATUS: ADIS REQ #: [id number] MICKY: 03/30/19 07:[address]: Jaci Hill DEPT: Surgical Specimen RECD BY: Whit Wong ENTERED: 03/30/19 12:41 SP TYPE: Bowel OTHR DR: Jayesh Duran DO Tissues: 1 - BIOPSY BOWEL 2 - BIOPSY BOWEL Procedures: GROSS AND MICRO LEVEL 4 Comments: [id number]
--- NOTE | 2019-03-30 08:34 | W.COLOREPORT ---
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 DESCRIPTION OF PROCEDURE: The patient was brought to the endoscopy suite and placed in left lateral decubitus position. Anesthesia was administered per the Department of Anesthesia, with constant monitoring of all vital signs. Digital rectal exam was performed prior to beginning the procedure and revealed no anal or rectal pathology. The previously lubricated Olympus was inserted in the rectum and insufflation was begun. The scope was passed up through the recto-sigmoid valves, through the sigmoid and transverse, down the ascending and the cecum was achieved at 90 cm. Poor prep was noted. The scope was then withdrawn. pt had x3 polyps removed @ 70cm/ ascending x2 hot snare and x1 hot biter. Seh had another @ 40cm/descending colon removed w/ hot biter. the pt has mult lg mouthed divertic that extends all the way to the R colon. They are numerous and lg. no signs of active bleeding or infection. The colon is extremely floppy and has poor tone. There are signs of melanosis coli throughout the colon. The patient tolerated the procedure without complicated and transferred to the recovery room in stable condition. Colonoscopy should not be repeated as risk out way any benefits. DO Josr
--- NOTE | 2019-03-30 08:42 | PDOC.DSDIS_ITS ---
Discharge Plan Disposition Patient Disposition: HOME Condition: Good Discharge Details Reason For Visit: scope of colon. Attending Provider: Jaci Hill Primary Care Provider: Jayesh Duran Home Meds and New Rx's Prescriptions: Continued sertraline 100 mg tablet 100 mg PO DAILY Qty: 90 RF: 3 baclofen 10 MG tablet 10 mg PO BID PRNQty: 270 RF: 3 amlodipine-benazepril [Lotrel] 5-20 mg capsule 1 cap PO DAILY Qty: 90 RF: 4 pravastatin [Pravachol] 20 mg tablet 20 mg PO DAILY Qty: 90 RF: 3 Discontinued polyethylene glycol 3350 17 gram/dose powder 238 g PO ONCE Qty: 238 RF: 0 bisacodyl [Dulcolax (bisacodyl)] 5 mg tablet,delayed release (DR/EC) 5 mg PO ONCE Qty: 4 RF: 0 Discharge Instructions Instructions: Diverticulosis (ED), High Fiber Diet (ED) Additional Instructions: Findings:sever diverticular Dx Ext. hemorrhoids polyps x4 Follow up: Will send a letter w/ the results of the polyp. Because of the severity of the diverticula- I do not recommend having any further colon scopes. Follow a high fiber diet and avoid straining to move bowels. Use a fiber supplement 2-3x's per day as needed. Please call if you develop: fevers >101.5 Nausea or Vomiting Abdominal pain that is not transient DAY SURGERY UNIT POST COLONOSCOPY INSTRUCTIONS 1. Because there will be medication in your system for the next 24 hours, you may feel a little sleepy. Your coordination will be affected. Therefore: a. Do not drive or operate dangerous equipment for 24 hours. b. Do not drink alcohol beverages for 24 hours (not even beer). c. Plan to go home and rest for the day. 2. Generally there are no restrictions on your activity after a day or so has gone by, but you may feel a bit fatigued for a few days. 3 After you arrive home you may have a light meal and return to a normal diet as you can tolerate it without feeling sick to your stomach. 4. After surgery, you may feel pain or discomfort. This should be only transient, but if it persists please contact your doctor. 5. If there are any questions regarding the findings of your procedure, please feel free to contact your doctor. 6. If you are unable to contact your doctor with a problem, contact the [facility] at [phone]. 4. Continue all your regular medications unless directed otherwise. I understand the above instructions and have no questions. Signature of Patient or Responsible Adult Escort Date/Time Name of Responsible Adult Escort Signature of Nurse Date/Time Activity:: no strenuous acitity x 24 hrs Diet:: small bland meals x 24 hrs Discharge Orders Discharge Orders: Discharge Order (Routine); Ordered 03/30/19 Ordered By: Jaci Hill DS: Diagnosis Discharge Diagnosis (1) Diverticular disease: Status: Acute (2) Adenomatous colon polyp: Status: Acute (3) External hemorrhoid: Status: Acute
[2019-03-30 09:45] VITALS: BP 161/75; PULSE 90; RESP 16; TEMP 36.2; O2SAT 99
== END 2019-03-30 09:50 | disposition home or self-care (01) ==
PROVIDERS: PCP Emergency Medicine; Visit Provider Surgery
PROC: 0DJD8ZZ Inspection of Lower Intestinal Tract, Via Natural or Artificial Opening Endoscopic (ICD-10-PCS; CPT 45378; principal; 2019-03-30 07:30)
DX: Z12.11 Encounter for screening for malignant neoplasm of colon (principal); D12.2 Benign neoplasm of ascending colon; D12.4 Benign neoplasm of descending colon; K51.40 Inflammatory polyps of colon without complications; K57.30 Diverticulosis of large intestine without perforation or abscess without bleeding; K63.89 Other specified diseases of intestine; Z86.010 Personal history of colon polyps; I10 Essential (primary) hypertension
CPT/HCPCS: 45385; 45384; 88305

== ENCOUNTER 2021-01-07 19:46 | Outpatient (REF) | payer MEDICARE, SELFPAY ==
[2021-01-07 19:27] LABS: RBC 20-50 HPF (0-2)
[2021-01-07 19:28] LABS: Bacteria Rare HPF (Negative); C & S Indicated? Yes; Casts 0-2 Hyaline LPF (Negative); Crystals Negative HPF (Negative); Epithelial Cells Negative HPF (Negative); Mucus Negative (Negative); Other Cells Negative (Negative)
== END 2021-01-07 19:47 | disposition home or self-care (01) ==
LOC: LBN 19:46
PROVIDERS: PCP Emergency Medicine; Visit Provider Family Medicine
DX: R35.0 Frequency of micturition (principal)
CPT/HCPCS: 81015; 87086

== ENCOUNTER 2021-12-31 14:13 | Observation (INO) | payer MEDICARE, SELFPAY ==
[2021-12-31] VITALS (36 sets, daily range): BP systolic 103–142; BP diastolic 50–115; PULSE 64–87; RESP 12–25; TEMP 36.1–36.6; O2SAT 93–100; BMI 23.1
--- NOTE | 2021-12-31 14:45 | DI.CT_ITS ---
Exam(s) CT THORAX ABD/PEL CTA EXAM: CT THORAX ABD/PEL CTA CLINICAL HISTORY: R/O AAA, Kidney stone. TECHNIQUE: Imaging Protocol: Axial computed tomography images with coronal and sagittal reformatted images were created and reviewed CONTRAST MATERIAL: Intravenous: Isovue-370 Contrast volume:100 ml Oral: None COMPARISON: US US RENAL from 01/07/2021 FINDINGS: CHEST: AORTA: Heart size is upper normal. There is no pericardial effusion. Respect of the aorta, the diamet er the ascending thoracic aorta is 3.7 cm. Diameter of the aortic arch is 3 cm. Diameter of the proxi mal descending thoracic aorta is 2.7 cm. Diameter the mid descending thoracic aorta is 3 cm. Diameter of the lower retrocardiac thoracic aorta is 2.5 cm. There is atherosclerotic involvement of the aort a. There is lateral mural thrombus in the proximal descending thoracic aorta. No dissection flap. Abdominal aorta is also atherosclerotic with a bilobed aneurysm. Maximum diameter of the abdominal an eurysm is 5.7 cm. There is mural thrombus in the aneurysm but no dissection. No tight stenosis at the aortic bifurcation. No aneurysmal dilatation of the common iliac arteries. No tight stenosis at the junction of the common and external iliac arteries but there is a moderate focal stenosis in the prox imal half the left external carotid artery. Common femoral arteries are patent. The celiac artery is patent. Exhibits some aneurysmal dilatation to a diameter of 1.3 cm starting approximately 1 centimet er distal to its origin. Splenic and common hepatic arteries are patent. 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 LUNGS: Mild increased markings both lung bases but no prominent infiltrates nor pleural effusions. No ominous pulmonary nodules. No significant focal findings in the trachea and mainstem bronchi.. MEDIASTINUM: There is no hilar nor mediastinal adenopathy. Multiple small nodules are noted in both t hyroid lobes. CARDIAC: Heart size upper normal. No pericardial effusion ABDOMEN: There is no ascites. LIVER: Multiple cysts are noted in both hepatic lobes. One of the larger cysts which is in the left h epatic lobe is peripherally calcified. This measures 4.4 by 4.2 cm. No dilated intrahepatic ducts GALLBLADDER/BILIARY: Small calcified gallstone measuring 3-4 millimeters. No gallbladder wall edema. CBD not dilated. PANCREAS: No evidence of pancreatic mass nor dilatation of the pancreatic duct. SPLEEN: Spleen is not enlarged. There are no intrasplenic lesions. Splenic and portal veins are mendez nt. ADRENALS: There are no significant adrenal masses. KIDNEYS: There is cysts evident in both kidneys. Largest cyst in the left kidney measures 6 centimete rs. The largest cyst in the right kidney measures 6.5 cm. No solid renal masses. No calculi. No hydro nephrosis.. ABDOMINAL AORTA: As above LYMPH NODES: There is no retroperitoneal nor para-aortic adenopathy. No obvious mesenteric masses. ABDOMINAL WALL: No evidence of significant anterior abdominal wall hernia. GI: There is no evidence of bowel obstruction, free air, nor abscess. PELVIS: LYMPH NODES: There is no intrapelvic nor inguinal adenopathy. GI: Appendix is thickened and inflamed appearing. Measures 13 millimeter diameter. Consistent with ac [place] appendicitis.Extensive sigmoid diverticulosis. No obvious acute diverticulitis. URINARY BLADDER: No calculi nor masses evident REPRODUCTIVE: Prostate size minimally prominent. Seminal vesicles unremarkable OSSEOUS: No significant osseous lesions. IMPRESSION: 1. The main acute finding here is acute appendicitis. The appendix is enlarged and inflamed 12 millim eter diameter. 2. Extensive sigmoid diverticulosis. No obvious acute diverticulitis. 3. 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 4. Atherosclerotic thoracic and abdominal aorta. Abdominal aortic aneurysm with maximum external diam eter 5.7 cm. Abundant mural thrombus. No evidence of leak at this time. Moderate focal stenosis in th e proximal 3rd of the left external iliac artery. 5. Multiple large benign cysts in both kidneys. No solid renal masses, calculi, or hydronephrosis. Cholelithiasis. No evidence of acute cholecystitis. Multiple large cysts in the liver, as described above. Findings called by myself to the ER physician. RADIATION DOSE DELIVERED: Total DLP DATA REPOSITORY: All CT scans at this facility are submitted to the National Radiology Data Registry (NRDR) Dose Index Registry (DIR) with the [employer] [place] [employer] (ACR). RADIATION OPTIMIZATION: All CT scans at this facility use at least one of these dose optimization te chniques: automated exposure control; mA and/or kV adjustment per patient size (includes targeted exa ms where dose is matched to clinical indication); or iterative reconstruction.
--- NOTE | 2021-12-31 14:57 | W.ED.GENAD ---
Discharge Plan Disposition Patient Disposition: STILL A PATIENT Discharge Details Primary Care Provider: Chandana Weathers ED Provider: Parris Arango Home Meds and New Rx's Prescriptions: No Action amlodipine-benazepril 10-20 mg capsule 1 cap PO DAILY Label Comments: increased by Dr. Craig at [facility] cholecalciferol (vitamin D3) 100 mcg (4,000 unit) tablet 100 mcg PO DAILY Myrbetriq 25 mg tablet extended release 24 hr 25 mg PO DAILY pravastatin 20 mg tablet 20 mg PO DAILY Qty: 90 3RF baclofen 10 MG tablet 10 mg PO BID PRNQty: 270 Medical Decision Making <Parris Arango - Last Filed: 12/31/21 15:34> 81-year-old male presents to the ER with chief complaint of right lower quadrant abdominal pain radiating into his groin which he reports began as acute onset approximately an hour and a half prior to arrival. He states that the pain is severe he did become nauseous and dizzy upon onset. He denies any problems urinating or burning with urination. Denies any testicular swelling. He did take 2 ibuprofen this morning. He is not on any thinners. He does have a past medical history of a 4 cm abdominal aortic aneurysm, anxiety, alcoholism, hypertension, multiple sclerosis, depression, liver cyst. Work-up ordered including CBC, CMP, PT, urinalysis CTA thorax abdomen pelvis ordered to rule out AAA, Differential diagnosis includes but not limited to AAA, kidney stone, UTI, appendicitis, muscle strain multiple sclerosis exacerbation CBC shows slightly leukocytosis 12.75, absolute neutrophils 10.48 urinalysis shows trace ketones 1.0 urobilinogen no leukocytes no nitrites no blood. Care is to be handed off to oncoming provider Dr. Quiroga pending CTA. Medical Records Medical records reviewed: Yes I reviewed the patient's medical records. Lab Data Lab results reviewed: Yes I reviewed the patient's lab results. <Nelson Quiroga MD - Last Filed: 12/31/21 17:09> 81-year-old male presents to the ER with chief complaint of right lower quadrant abdominal pain radiating into his groin which he reports began as acute onset approximately an hour and a half prior to arrival. He states that the pain is severe he did become nauseous and dizzy upon onset. He denies any problems urinating or burning with urination. Denies any testicular swelling. He did take 2 ibuprofen this morning. He is not on any thinners. He does have a past medical history of a 4 cm abdominal aortic aneurysm, anxiety, alcoholism, hypertension, multiple sclerosis, depression, liver cyst. Work-up ordered including CBC, CMP, PT, urinalysis CTA thorax abdomen pelvis ordered to rule out AAA, Differential diagnosis includes but not limited to AAA, kidney stone, UTI, appendicitis, muscle strain multiple sclerosis exacerbation CBC shows slightly leukocytosis 12.75, absolute neutrophils 10.48 urinalysis shows trace ketones 1.0 urobilinogen no leukocytes no nitrites no blood. Care is to be handed off to oncoming provider Dr. Quiroga pending CTA. Patient examined after s/o. Peristent RLQ tenderness. CT scan reviewed with radiologist, acute appendicitis. Case d/w Dr Trivedi. HPI <Parris Arango - Last Filed: 12/31/21 15:34> General Mode of arrival: wheelchair. Date/Time Provider Initiated Documentation: 12/31/21 14:17. Limitations to Documentation: no limitations. Information obtained by: patient, RN notes reviewed and old records reviewed. HPI Narrative: 81-year-old male presents to the ER with chief complaint of right lower quadrant abdominal pain radiating into his groin which he reports began as acute onset approximately an hour and a half prior to arrival. He states that the pain is severe he did become nauseous and dizzy upon onset. He denies any problems urinating or burning with urination. Denies any testicular swelling. He did take 2 ibuprofen this morning. He is not on any thinners. He does have a past medical history of a 4 cm abdominal aortic aneurysm, anxiety, alcoholism, hypertension, multiple sclerosis, depression, liver cyst. Related Data Home Medications Medication Instructions Recorded Confirmed baclofen 10 mg tablet 10 mg PO BID PRN #270 tab-caps 05/07/15 12/10/21 amlodipine 10 mg-benazepril 20 mg 1 cap PO DAILY 12/18/20 12/31/21 capsule cholecalciferol (vitamin D3) 100 100 mcg PO DAILY 12/18/20 12/31/21 mcg (4,000 unit) tablet mirabegron 25 mg tablet,extended 25 mg PO DAILY 12/10/21 12/31/21 release 24 hr (Myrbetriq) pravastatin 20 mg tablet 20 mg PO DAILY #90 tab-caps 12/10/21 12/10/21 Previous Rx's Medication Instructions Recorded pravastatin 20 mg tablet 20 mg PO DAILY #90 tab-caps 12/10/21 Allergies Allergy/AdvReac Type Severity Reaction Status Date / Time weed pollen Allergy Intermediate sneezing, Verified 12/31/21 14:20 body aches and pains General Stated Complaint: Abd Prob COLLIN: 3 Review of Systems <Parris Arango - Last Filed: 12/31/21 15:34> All systems reviewed & are unremarkable except as noted in HPI and below Constitutional Constitutional: Reports as per HPI and Denies fever(s) Cardiovascular Cardiovascular: Denies chest pain and Denies dyspnea Respiratory Respiratory: Denies dyspnea Gastrointestinal Gastrointestinal: Reports abdominal pain and Reports nausea Genitourinary Genitourinary: Reports as per HPI, Reports genital pain, Denies dysuria, Reports flank pain and Reports testicular pain Musculoskeletal Musculoskeletal: Reports stiffness PFSH <Parris Arango - Last Filed: 12/31/21 15:34> All Active Problems Tremor (Acute) 11/2021-history of benign tremor of upper extremity. Likely iatrogenic and related to sertraline-resolved with sertraline discontinued External hemorrhoid (Acute) Adenomatous colon polyp (Acute) 03/30/[address] Jaci Hill, [facility], Villous/Tubulovillous Adenoma/Sessile Serrated Adenoma. Many large diverticula throughout the colon, because of diverticula, Dr Hill does not recommend further colonoscopies. Abdominal aortic aneurysm (Acute 02/06/08) US 07/10 3.1 x 3.6 cm. Stable . 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 F/U CT at [facility] stable on US 07/10 Depressive disorder (Acute 11/23/13) Medical History Alcoholism (11/23/13) Anxiety Aortic aneurysm Cortical cataract of left eye Cortical cataract of right eye Depression Hypertension Multiple sclerosis Nuclear sclerotic cataract of left eye Nuclear sclerotic cataract of right eye Surgical History Status post cataract extraction and insertion of intraocular lens of left eye (06/10/18) Status post cataract extraction and insertion of intraocular lens of right eye (05/27/18) Status post cataract extraction and insertion of intraocular lens of right eye (05/27/18) Family History Mother No problems noted. Father Heart disease Hyperlipidemia Sister Diabetes Brother No problems noted. Grandfather No problems noted. Grandfather No problems noted. Grandmother No problems noted. Grandmother No problems noted. Social History Smoking/Tobacco Use Status: Former Tobacco Use tobacco type: cigarettes and pipe Quit Date: 07/26/93 Tobacco: How many years used: 33 Second Hand Exposure: Yes Smoking risk assessment performed?: Yes Alcohol Intake: former Drug use: Never Substance use type: does not use Household members: spouse and children Housing: house Communication Needs: None Do you need help understanding health information?: Never Pets and animals: Yes Pets and animals: cat(s) and dog(s) Sexually active: No Do you think of yourself as: straight/heterosexual Current gender identity: male What is your relationship status?: How often do you talk on the phone with friends or family?: never How often do you get together with friends or relatives?: never Do you belong to any clubs or organized social groups?: no Panel score (0-1 are the most socially isolated patients): 1 What type of physical activity do you participate in: bicycling Duration: 45-60 minutes/day Frequency: 5-6 times per week Hannah/Druze: No preference Special hannah needs: No Seatbelt use: always Helmet use: No Drive intox or ride w/intox school bus driver: No Do you feel safe at home: Yes Do you feel safe in your relationship?: Yes Exam <Parris Marcos Filed: 12/31/21 15:34> Narrative Exam Narrative: Constitutional: Alert and oriented x3. Appears stated age. Normal body habitus. Head: Normocephalic, no trauma. Eyes: , EOM's intact. Eyelids symmetrical without lesions, discharge, or swelling. . Chest: RRR, Normal S1, S2, distal pulses intact. Resp: Lungs clear to auscultation bilaterally, no wheezes, rales, or rhonchi. Abdomen: Guarding right lower quadrant, no masses palpated tenderness right lower quadrant. Genitourinary: No testicle swelling, no inguinal tenderness with palpation, no obvious evidence of torsion Musculoskeletal: Unable to assess gait, no midline L-spine tenderness. Skin: No suspicious rashes or lesions. Capillary refill less than 2 sec. Neurologic: Cranial nerves II-XII intact. Alert and oriented x 3. Motor: No deficits noted. Sensory: Intact bilaterally all 4 extremities. Reflexes: DTR's intact bilaterally.. Hematologic/Lymphatic: No ecchymosis, no lymphadenopathy. Course <Parris Arango Hemant Filed: 12/31/21 15:34> Vital Signs Vital signs: Vital Signs Temperature 36.1 C L 12/31/21 14:16 Pulse 80 12/31/21 14:16 Respiratory Rate 16 12/31/21 14:16 Blood Pressure 124/55 L 12/31/21 14:16 Pulse Oximetry 97 12/31/21 14:16 Temperature 36.1 C L 12/31/21 14:16 Pulse 80 12/31/21 14:16 Respiratory Rate 16 12/31/21 14:16 Respiratory Effort 12/31/21 14:21 Blood Pressure 124/55 L 12/31/21 14:16 Pulse Oximetry 97 12/31/21 14:16 Pain Level 9 12/31/21 14:21 Sign Out <Parris Arango Hemant Filed: 12/31/21 15:34> Sign Out Data: Sign Out Comment: Pending CTA and Labs. Differential Dx, UTI, Kidney stone, Groin strain, AAA, Appendectomy, MS flair, Last updated by Parris Arango at 12/31/21 15:23
[2021-12-31 15:09] LABS: Abs Immature Grans 0.07 10^3/uL (0.0-0.06); Absolute Basophil Count 0.05 10^3/uL (0.0-0.2); Absolute Eosinophil Count 0.08 10^3/uL (0.0-0.7); Absolute Lymphocyte Count 1.54 10^3/uL (1.2-3.4); Absolute Monocyte Count 0.54 10^3/uL (0.1-0.8); Absolute Neutrophil Count 10.48 10^3/uL (1.2-6.7); Basophils % 0.4; Eosinophils % 0.6; Immature Grans % 0.5; Lymphocytes % 12.1; MCH 30.4 pg (27.0-33.0); MCV 89 fL (80-95); MPV 10.8 fL (8.0-11.0); Monocytes % 4.2; Neutrophils % 82.2; Platelet Count 213 10^3/uL (130-400); RBC 5.27 10^6/uL (4.36-5.78); RDW 12.7 % (11.8-14.1); RDW-SD 41.4 fL; WBC 12.75 10^3/uL (4.4-10.8)
[2021-12-31 15:24] LABS: Bilirubin Negative (Negative); Blood Negative (Negative); Clarity Clear (Clear); Glucose Negative (Negative); Ketones Trace mg/dL (Negative); Leukocyte Esterase Negative (Negative); Nitrite Negative (Negative)
[2021-12-31 15:24] LABS: ALT 21 U/L (16-63); AST 11 U/L (15-37); Albumin 3.4 g/dL (3.4-5.0); Alkaline Phosphatase 81 U/L (46-116); BUN 15 mg/dL (7-18); Bilirubin, Total 0.5 mg/dL (0.2-1.0); CREATININE 0.8 mg/dL (0.70-1.30); Calcium 8.8 mg/dL (8.5-10.1); Chloride 106 mmol/L (98-107); Glucose 138 mg/dL (74-106); Magnesium 1.9 mg/dL (1.8-2.4); Potassium 3.5 mmol/L (3.5-5.1); Sodium 142 mmol/L (136-145); Total Protein 6.6 g/dL (6.4-8.2)
--- NOTE | 2021-12-31 17:25 | ANES.PREOP_ITS ---
General Info Date of Service Date Performed: 12/31/21 Height: 6 ft 4 in Weight: 86.183 kg Body Mass Index (BMI): 23.1 Meds Allergies and Home Medications Allergies Allergy/AdvReac Type Severity Reaction Status Date / Time weed pollen Allergy Intermediate sneezing, Verified 12/31/21 14:20 body aches and pains Home Medication Medication Instructions Recorded baclofen 10 mg tablet 10 mg PO BID PRN #270 tab-caps 05/07/15 amlodipine 10 mg-benazepril 20 mg 1 cap PO DAILY 12/18/20 capsule cholecalciferol (vitamin D3) 100 100 mcg PO DAILY 12/18/20 mcg (4,000 unit) tablet mirabegron 25 mg tablet,extended 25 mg PO DAILY 12/10/21 release 24 hr (Myrbetriq) pravastatin 20 mg tablet 20 mg PO DAILY #90 tab-caps 12/10/21 Current Visit Medications: Current Medications Generic Name Dose Route Start Last Admin Trade Name Freq PRN Reason Stop Dose Admin Sodium Chloride 500 mls @ 0 mls/hr 12/31/21 14:52 Saline 500ml Bag IV PRN PRN As Directed Piperacillin Sod/Tazobactam 50 mls @ 100 mls/hr 12/31/21 17:04 Sod 3.375 gm/ Sodium Chloride IVPB 12/31/21 17:33 NOW ONE Protocol Sodium Chloride 1,000 mls @ 1,000 mls/hr 12/31/21 17:05 Saline 1000ml Bag IV 12/31/21 18:04 BOLUS ONE IV Miscellaneous Supplies 1 each 12/31/21 15:00 Iv Access IV DIRECTED JO ANN Iopamidol 100 ml 12/31/21 17:00 12/31/21 16:28 Isovue 370 Mg/Ml 100 Ml Btl IJ 01/30/22 23:59 100 ml DIRECTED JO ANN Administration Sodium Chloride 0 ml 12/31/21 14:52 Normal Saline Flush 10 Ml Syr IVP PRN PRN Sodium Chloride 250 ml 12/31/21 16:30 12/31/21 16:29 Normal Saline 250 Ml Bag IJ 50 ml DIRECTED JO ANN Administration PFSH Active Problems Active Problems: Problem Status Onset Code Tremor R25.1 External hemorrhoid K64.4 Adenomatous colon polyp D12.6 Abdominal aortic aneurysm 02/06/08 I71.4 Benign prostatic hyperplasia 05/23/13 N40.0 Mxqysce-Gzkjj-Ieyzu disease 05/23/13 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 Q44.6 Depressive disorder 11/23/13 F32.9 Essential hypertension I10 Hypercholesterolemia 02/13/08 E78.00 Kidney stone 05/23/13 N20.0 Multiple sclerosis 02/06/08 G35 Peripheral neuralgia 02/06/08 M79.2 Gall bladder polyp 05/23/13 K82.4 Liver cyst K76.89 Depressive disorder 11/23/13 F32.9 Medical History Medical History Alcoholism (11/23/13) Anxiety Aortic aneurysm Cortical cataract of left eye Cortical cataract of right eye Depression Hypertension Multiple sclerosis Nuclear sclerotic cataract of left eye Nuclear sclerotic cataract of right eye Surgical History Surgical History Status post cataract extraction and insertion of intraocular lens of left eye (06/10/18) Status post cataract extraction and insertion of intraocular lens of right eye (05/27/18) Status post cataract extraction and insertion of intraocular lens of right eye (05/27/18) Tobacco Smoking/Tobacco Use Status: Former Tobacco Use Second hand exposure: Yes Alcohol Alcohol Intake: former Substance Use Substance use: Never Substance use type: does not use Vital Signs and Lab Results Vital Signs Most Recent Vital Signs in EMR: Most Recent Vital Signs Temp Pulse Resp BP Pulse Ox 36.6 C 74 16 125/61 100 12/31/21 16:38 12/31/21 16:38 12/31/21 14:16 12/31/21 16:38 12/31/21 16:38 Lab Results Result Diagrams: 12/31/21 15:00 12/31/21 15:00 Blood Type / Crossmatch: No Data to Display Complete Blood Count: White Blood Count 12.75 10^3/uL (4.4-10.8) H 12/31/21 15:00 Red Blood Count 5.27 10^6/uL (4.36-5.78) 12/31/21 15:00 Hemoglobin 16.0 g/dL (13.5-17.5) 12/31/21 15:00 Hematocrit 47.0 % (40.0-50.0) 12/31/21 15:00 Platelet Count 213 10^3/uL (130-400) 12/31/21 15:00 Complete Metabolic Panel: Sodium Level 142 mmol/L (136-145) 12/31/21 15:00 Potassium Level 3.5 mmol/L (3.5-5.1) 12/31/21 15:00 Chloride Level 106 mmol/L (98-107) 12/31/21 15:00 Carbon Dioxide Level 27.0 mmol/L (21.0-32.0) 12/31/21 15:00 Blood Urea Nitrogen 15 mg/dL (7-18) 12/31/21 15:00 Creatinine 0.8 mg/dL (0.70-1.30) 12/31/21 15:00 Estimated GFR/1.73 m2 >= 60.00 (mL/min/1.73m2) 12/31/21 15:00 Magnesium Level 1.9 mg/dL (1.8-2.4) 12/31/21 15:00 Calcium Level 8.8 mg/dL (8.5-10.1) 12/31/21 15:00 Albumin 3.4 g/dL (3.4-5.0) 12/31/21 15:00 Glucose Level 138 mg/dL (74-106) H 12/31/21 15:00 Liver Function Panel: Alanine Aminotransferase (ALT/SGPT) 21 U/L (16-63) 12/31/21 15: 00 Aspartate Amino Transf (AST/SGOT) 11 U/L (15-37) L 12/31/21 15: 00 Coagulation Panel: No Data to Display Cardiac Panel: No Data to Display Arterial Blood Gas: No Data to Display Venous Blood Gas: No Data to Display Pancreas Panel: No Data to Display Thyroid Panel: No Data to Display Infectious Disease: Coronavirus (COVID-19)(PCR) Pending 12/31/21 17:05 Coronavirus 2019 Source Nasal/Nares 12/31/21 17:05 Blood Cultures: No Data to Display Toxicology Panel: No Data to Display Anesthesia Assessment and Plan Anesthesia History Personal History: No History of Anesthesia Complications Family History: No Family History of Anesthesia Complications Exercise Tolerance Exercise Tolerance: Metabolic Equivalents>4 Cardiac & Pulmonary Exam Cardiac Exam: Normal S1/S2 Heart Sounds Pulmonary Exam: Clear Bilateral Breath Sounds Implantable Cardiac Device Does patient have a Pacemaker or an ICD?: No Airway Exam Known Difficult Airway: No Mallampati Class: 1 Mouth Opening: Normal (> 3cm) Thyromental Distance: Greater than 3 cm Neck Range of Motion: Full ROM Neck Circumference: Normal Teeth Condition: Normal Dentition ASA Classification ASA Score: ASA 3 Emergency Case?: Yes NPO Status NPO Status: NPO Clear Liquids>2 hours and NPO Small Non-Fatty Meal >6 hours Anesthesia Plan Resuscitation Status: Full Code Anesthesia Technique: General Anesthesia Airway Planned: Endotracheal Tube Monitors Used: Standard Monitors Preoperative Comments:: 81 yo male for appendectomy. Denies pain at this time, currently receiving zosyn 3.375 gm. Sig PMHx: AAA 3.6 cm, [id number]-[id number] (denies), HTN, MS (followed by [facility], doing well), depression.
[2021-12-31] MEDS: Normal Saline 1,000 ML 1000 ML IV (17:35)
--- NOTE | 2021-12-31 17:36 | W.PREOPHP ---
Assessment and Plan Assessment and plan (1) Acute appendicitis: Status: Acute Assessment and plan: Mr Callejas is a pleasant 81 year old male who presented to the Ed with acute onset of RLQ pain. CT scan showes appendicitis. He has a slight leukocytosis. No evidence of perforation of the appendix. Proceedure was explained to the patient in detail and complications were reviewed Risks, benefits and complications have been reviewed. Complications include but are not limited to bleeding, infection, injury to adjacent bowel, abscess formation, staple line leak, inability to do the procedure laparoscopically and adverse reaction to the medications. Questions were entertained and answered to their satisfaction and they wished to proceed. No guarantees were given or implied. Plan: COVID test Laparoscopic appendectomy ADmit for obs Zosyn IV x 1 before surgery, if signs of severe infection or rupture will continue antibiotics for 5 days (2) Abdominal aortic aneurysm: Status: Acute (3) Congenital cystic disease of liver: Status: Acute (4) Essential hypertension: Status: Acute (5) Multiple sclerosis: Status: Acute History of Present Illness Consults Consult date: 12/31/21 Requesting physician: Nelson Quiroga Narrative: Mr. Callejas is a pleasant 81-year-old male who presented to the ER with chief complaint of right lower quadrant abdominal pain radiating into his groin which he reports began as acute onset approximately an hour and a half prior to arrival.? He states that the pain is severe, he did become nauseous and dizzy upon onset.? He denies any problems urinating or burning with urination.? Denies any testicular swelling.? He did take 2 ibuprofen this morning.? He is not on any thinners. Work-up in the ED revealed a slight leukocytosis and CT scan revealed an enlarged appendix with some fat stranding. I reviewed the CT scan myself. Radiologist impression: 1. The main acute finding here is acute appendicitis. The appendix is enlarged and inflamed 12 millimeter diameter. 2. Extensive sigmoid diverticulosis. No obvious acute diverticulitis. 3. 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 4. Atherosclerotic thoracic and abdominal aorta. Abdominal aortic aneurysm with maximum external diameter 5.7 cm. Abundant mural thrombus. No evidence of leak at this time. Moderate focal stenosis in the proximal 3rd of the left external iliac artery. 5. Multiple large benign cysts in both kidneys. No solid renal masses, calculi, or hydronephrosis. Cholelithiasis. No evidence of acute cholecystitis. Multiple large cysts in the liver, as described above. His past medical history is significant for abdominal aortic aneurysm, anxiety, hypertension, multiple sclerosis, depression, liver cyst. MS is well controlled. He does walk with a walker because his right leg is stiff and he cant bend his knee or ankle. Review of Systems All systems reviewed & are unremarkable except as noted in HPI and below PFSH All Active Problems (Updated 12/31/21 @ 17:44 by Eda Mcbride MD) Acute appendicitis (Acute) Tremor (Acute) 11/2021-history of benign tremor of upper extremity. Likely iatrogenic and related to sertraline-resolved with sertraline discontinued External hemorrhoid (Acute) Adenomatous colon polyp (Acute) 03/30/[address] Jaci Hill, [facility], Villous/Tubulovillous Adenoma/Sessile Serrated Adenoma. Many large diverticula throughout the colon, because of diverticula, Dr Hill does not recommend further colonoscopies. Abdominal aortic aneurysm (Acute 02/06/08) US 07/10 3.1 x 3.6 cm. Stable . Check yearly 11/2021-followed by [facility] vascular surgery, 4.1 cm, yearly ultrasound at 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 neurology Peripheral neuralgia (Acute 02/06/08) Gall bladder polyp (Acute 05/23/13) Liver cyst (Acute) noted on MRI FA 03/08. F/U CT at [facility] stable on US 07/10 Depressive disorder (Acute 11/23/13) Medical History Alcoholism (11/23/13) Anxiety Aortic aneurysm Cortical cataract of left eye Cortical cataract of right eye Depression Hypertension Multiple sclerosis Nuclear sclerotic cataract of left eye Nuclear sclerotic cataract of right eye Surgical History Status post cataract extraction and insertion of intraocular lens of left eye (06/10/18) Status post cataract extraction and insertion of intraocular lens of right eye (05/27/18) Status post cataract extraction and insertion of intraocular lens of right eye (05/27/18) Family History Mother No problems noted. Father Heart disease Hyperlipidemia Sister Diabetes Brother No problems noted. Grandfather No problems noted. Grandfather No problems noted. Grandmother No problems noted. Grandmother No problems noted. Social History Smoking/Tobacco Use Status: Former Tobacco Use tobacco type: cigarettes and pipe Quit Date: 07/26/93 Tobacco: How many years used: 33 Second Hand Exposure: Yes Smoking risk assessment performed?: Yes Alcohol Intake: former Drug use: Never Substance use type: does not use Household members: spouse and children Housing: house Communication Needs: None Do you need help understanding health information?: Never Pets and animals: Yes Pets and animals: cat(s) and dog(s) Sexually active: No Do you think of yourself as: straight/heterosexual Current gender identity: male What is your relationship status?: How often do you talk on the phone with friends or family?: never How often do you get together with friends or relatives?: never Do you belong to any clubs or organized social groups?: no Panel score (0-1 are the most socially isolated patients): 1 What type of physical activity do you participate in: bicycling Duration: 45-60 minutes/day Frequency: 5-6 times per week Hannah/Uatsdin: No preference Special hannah needs: No Seatbelt use: always Helmet use: No Drive intox or ride w/intox local company truck driver: No Do you feel safe at home: Yes Do you feel safe in your relationship?: Yes Meds Allergies and Home Medications Allergies Allergy/AdvReac Type Severity Reaction Status Date / Time weed pollen Allergy Intermediate sneezing, Verified 12/31/21 14:20 body aches and pains Home Medications Medication Instructions Recorded Confirmed Type baclofen 10 mg tablet 10 mg PO BID PRN #270 tab-caps 05/07/15 12/10/21 History amlodipine 10 mg-benazepril 20 mg 1 cap PO DAILY 12/18/20 12/31/21 History capsule cholecalciferol (vitamin D3) 100 100 mcg PO DAILY 12/18/20 12/31/21 History mcg (4,000 unit) tablet mirabegron 25 mg tablet,extended 25 mg PO DAILY 12/10/21 12/31/21 History release 24 hr (Myrbetriq) pravastatin 20 mg tablet 20 mg PO DAILY #90 tab-caps 12/10/21 12/10/21 Rx Exam Const General: healthy appearing, comfortable and no acute distress Orientation: alert and oriented x3 HENMT Head: normocephalic and atraumatic Eyes Pupils: PERRL Resp Effort & Inspection: normal respiratory effort Auscultation: clear to auscultation bilaterally Cardio Rate: regular rate Rhythm: regular rhythm Heart Sounds: no gallops, no murmurs and no rubs GI Inspection: normal to inspection Palpation: soft, no hepatosplenomegaly and tender in the RLQ; with no rebound tenderness Auscultation: normal bowel sounds Results Labs Result diagrams: 12/31/21 15:00 12/31/21 15:00 Labs: Laboratory Results - last 24 hr 12/31/21 12/31/21 12/31/21 15:00 15:00 15:16 WBC 12.75 H RBC 5.27 Hgb 16.0 Hct 47.0 MCV 89 MCH 30.4 MCHC 34.0 RDW 12.7 Plt Count 213 MPV 10.8 Immature Gran % 0.5 Neutrophils % 82.2 Lymphocytes % 12.1 Monocytes % 4.2 Eosinophils % 0.6 Basophils % 0.4 Nucleated RBC % 0.0 Absolute Neutrophils 10.48 H Absolute Lymphocytes 1.54 Absolute Monocytes 0.54 Absolute Eosinophils 0.08 Absolute Basophils 0.05 Sodium 142 Potassium 3.5 Chloride 106 Carbon Dioxide 27.0 Anion Gap 9.0 BUN 15 Creatinine 0.8 Estimated GFR/1.73 m2 >= 60.00 Glucose 138 H Calcium 8.8 Magnesium 1.9 Total Bilirubin 0.5 AST 11 L ALT 21 Alkaline Phosphatase 81 Total Protein 6.6 Albumin 3.4 Urine Color Yellow Urine Clarity Clear Urine pH 7.0 Ur Specific [place] 1.020 Urine Protein Negative Urine Ketones Trace H Urine Blood Negative Urine Nitrite Negative Urine Bilirubin Negative Urine Urobilinogen 1.0 H Ur Leukocyte Esterase Negative Urine Glucose Negative Last Vital Signs Temp 97.9 F 12/31/21 16:38 Pulse 74 12/31/21 16:38 Resp 16 12/31/21 14:16 BP 125/61 12/31/21 16:38 Pulse Ox 100 12/31/21 16:38
[2021-12-31] MEDS: PIPERACILLIN/TAZO 3.375 GM in Normal Saline 50 ML IVPB ×2 (17:37→22:35)
[2021-12-31 17:38] LABS: Source Nasal/Nares
--- NOTE | 2021-12-31 17:54 | ROE_ITS ---
Date of service: 12/31/21 Time of Service: 20:21 Operative Note Operative Note DATE OF PROCEDURE: 12/31/21 PRE-OP DIAGNOSIS: acute appendicitis POST-OP DIAGNOSIS: same (supporative appendicitis) PROCEDURE: Laparoscopic appendectomy SURGEON: Eda Mcbride [employer]YW[employer]UD WORKER: Jaci Plascencia ANESTHESIA TYPE: General LMA/ETT Refer to Anesthesia Record ESTIMATED BLOOD LOSS: 100 PATHOLOGY: other (appendix) COMPLICATIONS: None Patient was transported to: PACU Patient's condition: stable Implants: None Indications: Mr Callejas is a pleasant 81 year old male who presented to the Ed with acute onset of RLQ pain. CT scan showes appendicitis. He has a slight leukocytosis. No evidence of perforation of the appendix. Proceedure was explained to the patient in detail and complications were reviewed Risks, benefits and complications have been reviewed. Complications include but are not limited to bleeding, infection, injury to adjacent bowel, abscess formation, staple line leak, inability to do the procedure laparoscopically and adverse reaction to the medications. Questions were entertained and answered to their satisfaction and they wished to proceed. No guarantees were given or implied. Findings: Adhesions of omentum to the abdominal wall Supporative appendicitis. No signs of perforation Procedure Description: After informed consent was obtained the patient was taken to the operating room placed in the supine position, SCDs were applied as well as monitors. A timeout was done. The patient was then placed under general anesthesia and intubated without any difficulty. Next a Gutiérrez catheter was placed in a standard surgical fashion. At this point the abdomen was prepped and draped in a sterile surgical fashion with chlorhexidine. A second timeout was done and the patient's name, date of , operation to be performed, DVT prophylaxis, antibiotic given, and fire risk was assessed. 0.25% Bupivocaine was injected into the dermis just above the umbilicus. A small 5 mm incision was made with an 11 blade. The skin was grasped with penetrating towel clamps on either side of the incision and then using a Visiport a 5 mm port was placed under direct visualization into the abdomen. The abdomen was insufflated. Local anesthetic was then injected just above the pubic symphysis in the midline. A small 5 mm incision was made with an 11 blade and another 5 mm port was placed under direct visualization into the abdomen. The local anesthetic was then injected in the left lower quadrant area and a 12 mm incision was made with an 11 blade. A 12 mm port was then placed under direct visualization. The patient's bed was then turned to the left and head down. There was omentum adhered to the abdominal wall. The oemntum was dissected away from the peritoneum using the Ligasure dissector. Once down the omentum was noted to be adhered along the right lower quadrant at the level of his hip. The omentum was dissected away from the wall. I was then able to see the tip of the appendix which was dilated and had some patchy necrosis. There was no purulent fluid noted. The appendix was grasped at the tip and pulled up slightly. I was then able to visualize the junction with the cecum. Using the laparoscopic LigaSure the mesoappendix was slowly transected. Using a laparoscopic straight stapler the appendix was then transected at the junction with the cecum. The appendix was placed into an Endo Catch bag and removed through the 12 mm port site. The port was placed back into the abdomen and the staple line was identified. No bleeding was noted. The transected mesentery was identified and bleeding was noted. The bleeding was stopped with 10 mm clips and the ligasure. Once the bleeding had stopped a raytech was placed into the abdomen and the abdomen was irrigated with 2.25 L of warm NS. The fluid was suctioned out. The fluid at the end was clear. The raytech was removed. A count was done and all the raytechs were accounted for. The 2 5 mm ports were then removed under direct visualization and no bleeding was noted from the fascia. The insufflation was stopped and the 12 mm port was removed. The 12 mm port site fascia was closed with a 0 Vicryl [id number] suture. The skin was then closed with 4-0 Vicryl. The skin was cleaned and dried and skin affix was applied. The patient was woken up, extubated and taken back to recovery room in stable condition. There were no immediate complications. Sponge, instrument and needle counts were correct at the end of the case x2.
[2021-12-31 18:27] LABS: COVID-19 PCR Negative (Negative)
--- NOTE | 2021-12-31 19:40 | APP_PTH ---
PATIENT: Alex Paige LOC: [id number]#:[id number] AGE/SX: 81/M ROOM: 227 RE12/31/[address]: Eda Mcbride MD : [id number] BED: A DIS: 01/03/2022 SPEC #: [id number] RECD: 01/01/22 13:05 STATUS: [place] REQ #: [id number] MICKY: 12/31/21 19:[address]: Eda Mcbride DEPT: Surgical Specimen RECD BY: Whit Wong ENTERED: 01/01/22 13:06 SP TYPE: Appendix OTHR DR: Chandana Weathers MD Tissues: 1 - APPENDIX NOT INCIDENTAL Procedures: GROSS AND MICRO LEVEL 3 Comments: [id number]
[2021-12-31] MEDS: fentaNYL 100 MCG/2 ML VIAL IVP ×2 (20:33→20:53)
--- NOTE | 2021-12-31 20:42 | W.ANESPOSTOP ---
Postoperative Evaluation Date, Time and Location Date Performed: 12/31/21 Time Performed: 20:42 Patient Location: PACU Vital Signs Most Recent Imported Vital Signs: Most Recent Vital Signs Temp Pulse Resp BP Pulse Ox 36.4 C L 64 21 106/55 L 95 12/31/21 20:37 12/31/21 20:37 12/31/21 20:37 12/31/21 20:37 12/31/21 20:37 Pain Score Most Recent Pain Score: Most Recent Pain Score Pain Level 0 12/31/21 16:38 Assessment Mental Status: Arousable with meaningful communication Airway and Respiratory Function: Patent airway with normal (patient baseline) respiratory exam Cardiovascular Function: Hemodynamically Stable Hydration Status: Adequately Hydrated Nausea & Vomiting: No Nausea or Vomiting Pain: Pain is Moderate or Severe Postoperative Pain Management: Pain being addressed with medication Peripheral Nerve Block: Patient did not receive a nerve block
[2021-12-31] MEDS: Pravastatin 20 MG TAB PO (22:07)
[2021-12-31] MEDS: Lactated Ringers 1,000 ML 30 ML IV (22:07)
[2021-12-31] MEDS: MORPHine 2 MG/ML SYR IVP (22:07)
[2021-12-31] MEDS: Docusate Sodium 100 MG CAP PO (22:08)
[2022-01-01 00:02] VITALS: BP 121/68; PULSE 78; RESP 18; TEMP 37.5; O2SAT 95
[2022-01-01 01:20] VITALS: BP 118/68; PULSE 70; RESP 18; TEMP 37.5; O2SAT 95
[2022-01-01 02:00] VITALS: BP 120/65; PULSE 85; RESP 18; TEMP 37.2; O2SAT 94
[2022-01-01] MEDS: PIPERACILLIN/TAZO 3.375 GM in Normal Saline 50 ML IVPB ×4 (04:15→21:22)
[2022-01-01 06:12] LABS: Abs Immature Grans 0.08 10^3/uL (0.0-0.06); Absolute Basophil Count 0.02 10^3/uL (0.0-0.2); Absolute Lymphocyte Count 0.44 10^3/uL (1.2-3.4); Absolute Neutrophil Count 15.02 10^3/uL (1.2-6.7); Basophils % 0.1; HCT 40.8 % (40.0-50.0); HGB 14.1 g/dL (13.5-17.5); Immature Grans % 0.5; Lymphocytes % 2.7; MCH 30.8 pg (27.0-33.0); MCHC 34.6 % (32.0-36.0); MCV 89 fL (80-95); MPV 11.3 fL (8.0-11.0); Neutrophils % 92.7; Platelet Count 202 10^3/uL (130-400); RBC 4.58 10^6/uL (4.36-5.78); RDW 12.9 % (11.8-14.1)
[2022-01-01 06:18] LABS: Absolute Monocyte Count 0.65 10^3/uL (0.1-0.8)
--- NOTE | 2022-01-01 07:32 | PGE_ITS ---
Date of Service Date of service: 01/01/22 Time of Service: 07:32 Assessment and Plan Assessment and plan (1) Acute appendicitis: Status: Acute Assessment and plan: POD #1 s/p Laparoscopic Appendectomy Tolerating clear liquid diet, advance as tolerated Encouraged sitting up in the chair ambulation with assistance and incentive spirometer use Probable d/c home in AM Increased leukocytosis today; reactive vs high risk for post-op abscess given suppurative appendix Continue IV Zosyn PRN analgesics as written Will reassess in AM for possible discharge, will be provided with Rx for PO abx Patient will need 2 week follow up with surgical office (2) Abdominal aortic aneurysm: Status: Acute Assessment and plan: Antihypertensives and close follow up with 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 He expressed that he is eager to increase his PO intake, Concerned that he has not been making much urine. Denies any fevers, chills or nausea or vomiting. Exam Const General: cooperative, healthy appearing and comfortable Orientation: alert and oriented x3 Resp Effort & Inspection: normal respiratory effort, no audible wheezes and no cough GI Inspection: normal to inspection Palpation: soft, no guarding and tender in the RLQ Auscultation: normal bowel sounds Objective Last Vital Signs Temp 37.2 C 01/01/22 02:00 Pulse 85 01/01/22 02:00 Resp 18 01/01/22 02:00 BP 120/65 01/01/22 02:00 Pulse Ox 94 01/01/22 02:00 Laboratory Results - last 24 hr 12/31/21 12/31/21 12/31/21 15:00 15:00 15:16 WBC 12.75 H RBC 5.27 Hgb 16.0 Hct 47.0 MCV 89 MCH 30.4 MCHC 34.0 RDW 12.7 Plt Count 213 MPV 10.8 Immature Gran % 0.5 Neutrophils % 82.2 Lymphocytes % 12.1 Monocytes % 4.2 Eosinophils % 0.6 Basophils % 0.4 Nucleated RBC % 0.0 Absolute Neutrophils 10.48 H Absolute Lymphocytes 1.54 Absolute Monocytes 0.54 Absolute Eosinophils 0.08 Absolute Basophils 0.05 Sodium 142 Potassium 3.5 Chloride 106 Carbon Dioxide 27.0 Anion Gap 9.0 BUN 15 Creatinine 0.8 Estimated GFR/1.73 m2 >= 60.00 Glucose 138 H Calcium 8.8 Magnesium 1.9 Total Bilirubin 0.5 AST 11 L ALT 21 Alkaline Phosphatase 81 Total Protein 6.6 Albumin 3.4 Urine Color Yellow Urine Clarity Clear Urine pH 7.0 Ur Specific [place] 1.020 Urine Protein Negative Urine Ketones Trace H Urine Blood Negative Urine Nitrite Negative Urine Bilirubin Negative Urine Urobilinogen 1.0 H Ur Leukocyte Esterase Negative Urine Glucose Negative COVID-19 Source SARS-CoV-2 (PCR) 12/31/21 01/01/22 17:05 05:28 WBC 16.20 H RBC 4.58 Hgb 14.1 Hct 40.8 MCV 89 MCH 30.8 MCHC 34.6 RDW 12.9 Plt Count 202 MPV 11.3 H Immature Gran % 0.5 Neutrophils % 92.7 Lymphocytes % 2.7 Monocytes % 4.0 Eosinophils % 0.0 Basophils % 0.1 Nucleated RBC % 0.0 Absolute Neutrophils 15.02 H Absolute Lymphocytes 0.44 L Absolute Monocytes 0.65 Absolute Eosinophils 0.00 Absolute Basophils 0.02 Sodium Potassium Chloride Carbon Dioxide Anion Gap BUN Creatinine Estimated GFR/1.73 m2 Glucose Calcium Magnesium Total Bilirubin AST ALT Alkaline Phosphatase Total Protein Albumin Urine Color Urine Clarity Urine pH Ur Specific [place] Urine Protein Urine Ketones Urine Blood Urine Nitrite Urine Bilirubin Urine Urobilinogen Ur Leukocyte Esterase Urine Glucose COVID-19 Source Nasal/Nares SARS-CoV-2 (PCR) Negative
[2022-01-01] MEDS: Benazepril 10 MG TAB 20 MG PO (08:06)
[2022-01-01] MEDS: Mirabegron 25 MG TABCR PO (08:06)
[2022-01-01] MEDS: Psyllium PKT 1 EACH PO (08:06)
[2022-01-01] MEDS: Docusate Sodium 100 MG CAP PO ×3 (08:07→21:22)
[2022-01-01] MEDS: Normal Saline Flush 10 ML SYR IVP ×3 (08:07→21:22)
[2022-01-01] MEDS: amLODIPine 5 MG TAB 10 MG PO (08:07)
[2022-01-01 08:09] VITALS: BP 122/75; PULSE 82; RESP 17; TEMP 37.3; O2SAT 94
--- NOTE | 2022-01-01 09:48 | INITIAL_ITS ---
- If Service Date Differs Date of service: 01/01/22 Time of Service: 09:48 Care Management Initial Assess REASON FOR HOSPITALIZATION:: Acute appendicitis, Laparoscopic Appendectomy PAST MEDICAL HISTORY/PAST SURGICAL HISTORY:: All Active Problems (Updated 03/16 @ 17:44 by Eda Mcbride MD). Acute appendicitis (Acute). Tremor (Acute). 11/2021-history of benign tremor of upper extremity. Likely iatrogenic and related to sertraline-resolved with sertraline discontinued. External hemorrhoid (Acute). Adenomatous colon polyp (Acute). 03/30/[address] Jaci Hill, [facility], Villous/Tubulovillous Adenoma/Sessile Serrated Adenoma. Many large diverticula throughout the colon, because of diverticula, Dr Hill does not recommend further colonoscopies. Abdominal aortic aneurysm (Acute 02/06/08). US 07/10 3.1 x 3.6 cm. Stable . Check yearly. 11/2021-followed by [facility] vascular surgery, 4.1 cm, yearly ultrasound at [facility]. Benign prostatic hyperplasia (Acute 05/23/13). 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 Depressive disorder (Acute 11/23/13). Essential hypertension (Acute). Hypercholesterolemia (Acute 02/13/08). Kidney stone (Acute 05/23/13). Multiple sclerosis (Acute 02/06/08). 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 Notable for advanced right leg weakness, modest weakness in other extremities. Followed twice a year [facility] neurology. Peripheral neuralgia (Acute 02/06/08). Gall bladder polyp (Acute 05/23/13). Liver cyst (Acute). noted on MRI FA 03/08. F/U CT at [facility]. stable on US 07/10. Depressive disorder (Acute 11/23/13). Medical History (Reviewed 0 12/31/21 @ 17:41 by Eda Mcbride MD). Alcoholism (11/23/13). Anxiety. Aortic aneurysm. Cortical cataract of left eye. Cortical cataract of right eye. Depression. Hypertension. Multiple sclerosis. Nuclear sclerotic cataract of left eye. Nuclear sclerotic cataract of right eye. Surgical History . Status post cataract extraction and insertion of intraocular lens of left eye (06/10/18). Status post cataract extraction and insertion of intraocular lens of right eye (05/27/18). Status post cataract extraction and insertion of intraocular lens of right eye (05/27/18) PREVIOUS FUNCTIONAL STATUS/SOCIAL/FAMILY SUPPORTS:: Alex lives in [place] with his Nevaeh and 2 adult sons. He has 2 dogs and a cat. His Nevaeh transports him. He exercises daily. He uses a walker to ambulate. CURRENT FUNCTIONAL STATUS:: Alex was sitting in his recliner visiting with his Nevaeh when CM met with him. He is alert, oriented, pleasant and easy to engage in conversation. Alex shares that he is extremely happy with the care he is receiving. CM provided Alex with information about the [place] [facility]. ADVANCE DIRECTIVES:: DPOA on file, HCA is Nevaeh Paige Has patient been provided with info about the portal/API?: Yes Did the patient sign up for the portal?: Yes (Prior to admission) CODE STATUS:: Full Code INSURANCE COVERAGE / FINANCIAL ISSUES:: BS. [facility]LY [facility] Advantage. Medicare CURRENT HOME/COMMUNITY SERVICES/EQUIPMENT:: [facility] PRIMARY CARE PHYSICIAN:: [facility] PATIENT/FAMILY EDUCATION NEEDS:: Review discharge instructions, limitations, medications and plan to follow up with community providers. ask me three. TRANSPORTATION:: Via private vehicle with Nevaeh. PLAN:: Anticipate, Alex will discharge home via private vehicle with when medically ready. Alex declines [facility] services at this time. Pt will need a 2 week follow up with surgical office and a follow up appointment with his PCP.
[2022-01-01 15:31] VITALS: BP 116/63; PULSE 93; RESP 16; TEMP 37.5; O2SAT 96
[2022-01-01] MEDS: Pravastatin 20 MG TAB PO (21:22)
[2022-01-01 23:30] VITALS: BP 103/59; PULSE 87; RESP 16; TEMP 37.2; O2SAT 94
[2022-01-02] MEDS: Acetaminophen 325 MG TAB 650 MG PO ×2 (03:55→21:04)
[2022-01-02] MEDS: PIPERACILLIN/TAZO 3.375 GM in Normal Saline 50 ML IVPB ×3 (03:56→16:24)
[2022-01-02 06:28] LABS: Abs Immature Grans 0.06 10^3/uL (0.0-0.06); Absolute Basophil Count 0.04 10^3/uL (0.0-0.2); Absolute Lymphocyte Count 2.06 10^3/uL (1.2-3.4); Absolute Monocyte Count 0.71 10^3/uL (0.1-0.8); Basophils % 0.3; Eosinophils % 0.3; HCT 38.5 % (40.0-50.0); HGB 12.9 g/dL (13.5-17.5); Immature Grans % 0.5; Lymphocytes % 17.2; MCH 30.3 pg (27.0-33.0); MCHC 33.5 % (32.0-36.0); MCV 90 fL (80-95); MPV 10.9 fL (8.0-11.0); Monocytes % 5.9; Neutrophils % 75.8; Platelet Count 194 10^3/uL (130-400); RBC 4.26 10^6/uL (4.36-5.78); RDW 12.8 % (11.8-14.1)
[2022-01-02 06:31] LABS: Absolute Eosinophil Count 0.04 10^3/uL (0.0-0.7)
[2022-01-02 06:41] LABS: ALT 13 U/L (16-63); AST 10 U/L (15-37); Albumin 2.5 g/dL (3.4-5.0); Alkaline Phosphatase 51 U/L (46-116); Anion Gap 8.5 mmol/L (3-11); BUN 18 mg/dL (7-18); Bilirubin, Total 0.6 mg/dL (0.2-1.0); CO2 26.5 mmol/L (21.0-32.0); CREATININE 0.9 mg/dL (0.70-1.30); Calcium 8.4 mg/dL (8.5-10.1); Chloride 108 mmol/L (98-107); Glucose 102 mg/dL (74-106); Magnesium 1.9 mg/dL (1.8-2.4); PHOSPHORUS 2.8 mg/dL (2.6-4.7); Potassium 3.4 mmol/L (3.5-5.1); Sodium 143 mmol/L (136-145); Total Protein 5.7 g/dL (6.4-8.2)
[2022-01-02 08:04] VITALS: BP 121/72; PULSE 79; RESP 18; TEMP 36.6; O2SAT 94
[2022-01-02] MEDS: amLODIPine 5 MG TAB 10 MG PO (08:04)
[2022-01-02] MEDS: Benazepril 10 MG TAB 20 MG PO (08:04)
[2022-01-02] MEDS: Psyllium PKT 1 EACH PO (08:04)
[2022-01-02] MEDS: Mirabegron 25 MG TABCR PO (08:04)
[2022-01-02] MEDS: Docusate Sodium 100 MG CAP PO ×3 (08:04→21:05)
[2022-01-02] MEDS: Normal Saline Flush 10 ML SYR IVP (09:58)
--- NOTE | 2022-01-02 09:58 | W.PM.DS.N ---
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 Due to increasing leukocytosis he was kept for an additional day of IV antibiotics. He is tolerating a regular diet and pain has been well controlled. He will be discharged home today with 5 additional days of PO antibiotics and pain medication. Home Meds and New Rx's Prescriptions: New amoxicillin-pot clavulanate [Augmentin] 500-125 mg tablet 1 tab PO BID Qty: 10 0RF tramadol 50 mg tablet 50 mg PO Q8H PRN (Reason: pain) Qty: 10 0RF Continued amlodipine-benazepril 10-20 mg capsule 1 cap PO DAILY Label Comments: increased by Dr. Craig at [facility] cholecalciferol (vitamin D3) 100 mcg (4,000 unit) tablet 100 mcg PO DAILY Myrbetriq 25 mg tablet extended release 24 hr 25 mg PO DAILY pravastatin 20 mg tablet 20 mg PO DAILY Qty: 90 3RF baclofen 10 MG tablet 10 mg PO BID PRNQty: 270 Discharge Instructions Instructions: Laparoscopic Appendectomy (DC) Referrals: Mikki Leger PA [[facility]] - 01/16/22 10:00 am Activity:: no lifting >10lbs Equipment/Supplies:: No Equipment Needed Diet:: As Tolerated Discharge Orders Discharge Orders: Discharge Order (Routine); Ordered 01/02/22 Ordered By: Akua Aden DS: Summary Time Spent with Patient providing and/or coordinating discharge services: Less than 30 minutes Status at Discharge Functional status at discharge: independent ambulation Overall status at discharge: patient is progressing back to baseline Mental Status: mental status grossly normal Speech and Movement: speech and movement normal Mood: congruent mood Affect: normal affect Exam Const General: cooperative, healthy appearing, comfortable and no acute distress Resp Effort & Inspection: normal respiratory effort, no audible wheezes and no cough GI Inspection: normal to inspection and incision (intact with skin glue) Palpation: soft, no guarding and tender (appropriate post op) Neuro General: patient alert, patient awake and patient oriented x3 Psych Mental Status: mental status grossly normal Speech and Movement: speech and movement normal Mood: congruent mood Affect: normal affect DS: Data Vitals/I&O Vitals and I&O: Vital Signs Temperature 97.9 F 01/02/22 08:04 Temperature Source Tympanic 01/02/22 08:04 Pulse 79 01/02/22 08:04 Pulse Rhythm Regular 01/02/22 08:42 Pulse 83 12/31/21 17:46 Respiratory Rate 18 01/02/22 08:04 Respiratory Effort Non-Labored 01/02/22 08:42 Respiratory Depth Normal 01/02/22 08:42 Respiratory Pattern Normal 01/02/22 08:42 Blood Pressure 121/72 01/02/22 08:04 Blood Pressure Mean 86 12/31/21 17:46 Pulse Oximetry 94 01/02/22 08:04 Respiratory End-tidal CO2 20 12/31/21 21:00 Oxygen Delivery Method Room Air 01/02/22 08:04 Oxygen Flow Rate 0 01/02/22 08:04 Pain Level 5 01/02/22 03:55 Comment 01/01/22 16:35 Intake & Output 01/01/22 01/01/22 01/02/22 11:59 23:59 11:59 Intake Total 1208 / 2316.5 1108.5 / 2316.5 100 / 100 Output Total 1350 / 2950 1600 / 2950 920 / 920 Balance -142 / -633.5 -491.5 / -633.5 -820 / -820 Intake: IV 488 / 626.5 138.5 / 626.5 100 / 100 Oral 720 / 1690 970 / 1690 Output: Urine 1350 / 2950 1600 / 2950 920 / 920 Other: Urine Color Straw Yellow Yellow Urine Appearance Clear Cloudy Cloudy Urine Odor Strong Normal Normal Comment Void x1 in the urinal. Void x1 in the urinal. Voiding Methods Urinal Urinal Urinal Data Completed and Pending Labs on day of discharge: Labs from last 24 hours 01/02/22 01/02/22 06:05 06:05 WBC 12.00 H RBC 4.26 L Hgb 12.9 L Hct 38.5 L MCV 90 MCH 30.3 MCHC 33.5 D RDW 12.8 Plt Count 194 MPV 10.9 Immature Gran % 0.5 Neutrophils % 75.8 Lymphocytes % 17.2 Monocytes % 5.9 Eosinophils % 0.3 Basophils % 0.3 Nucleated RBC % 0.0 Absolute Neutrophils 9.10 H Absolute Lymphocytes 2.06 Absolute Monocytes 0.71 Absolute Eosinophils 0.04 Absolute Basophils 0.04 Sodium 143 Potassium 3.4 L Chloride 108 H Carbon Dioxide 26.5 Anion Gap 8.5 BUN 18 Creatinine 0.9 Estimated GFR/1.73 m2 >= 60.00 Glucose 102 Calcium 8.4 L Phosphorus 2.8 Magnesium 1.9 Total Bilirubin 0.6 AST 10 L ALT 13 L Alkaline Phosphatase 51 Total Protein 5.7 L Albumin 2.5 L PFSH All Active Problems (Updated 12/31/21 @ 17:44 by Eda Mcbride MD) Acute appendicitis (Acute) Tremor (Acute) 11/2021-history of benign tremor of upper extremity. Likely iatrogenic and related to sertraline-resolved with sertraline discontinued External hemorrhoid (Acute) Adenomatous colon polyp (Acute) 03/30/[address] Jaci Hill, [facility], Villous/Tubulovillous Adenoma/Sessile Serrated Adenoma. Many large diverticula throughout the colon, because of diverticula, Dr Hill does not recommend further colonoscopies. Abdominal aortic aneurysm (Acute 02/06/08) US 07/10 3.1 x 3.6 cm. Stable . 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 F/U CT at [facility] stable on US 07/10 Depressive disorder (Acute 11/23/13) Medical History Alcoholism (11/23/13) Anxiety Aortic aneurysm Cortical cataract of left eye Cortical cataract of right eye Depression Hypertension Multiple sclerosis Nuclear sclerotic cataract of left eye Nuclear sclerotic cataract of right eye Surgical History Status post cataract extraction and insertion of intraocular lens of left eye (06/10/18) Status post cataract extraction and insertion of intraocular lens of right eye (05/27/18) Status post cataract extraction and insertion of intraocular lens of right eye (05/27/18) Family History Mother No problems noted. Father Heart disease Hyperlipidemia Sister Diabetes Brother No problems noted. Grandfather No problems noted. Grandfather No problems noted. Grandmother No problems noted. Grandmother No problems noted. Social History Smoking/Tobacco Use Status: Former Tobacco Use tobacco type: cigarettes and pipe Quit Date: 07/26/93 Tobacco: How many years used: 33 Second Hand Exposure: Yes Smoking risk assessment performed?: Yes Alcohol Intake: former Drug use: Never Substance use type: does not use Household members: spouse and children Housing: house Communication Needs: None Do you need help understanding health information?: Never Pets and animals: Yes Pets and animals: cat(s) and dog(s) Sexually active: No Do you think of yourself as: straight/heterosexual Current gender identity: male What is your relationship status?: How often do you talk on the phone with friends or family?: never How often do you get together with friends or relatives?: never Do you belong to any clubs or organized social groups?: no Panel score (0-1 are the most socially isolated patients): 1 What type of physical activity do you participate in: bicycling Duration: 45-60 minutes/day Frequency: 5-6 times per week Hannah/Orthodox: No preference Special hannah needs: No Seatbelt use: always Helmet use: No Drive intox or ride w/intox sprinkler driver: No Do you feel safe at home: Yes Do you feel safe in your relationship?: Yes
[2022-01-02] MEDS: traMADol 50 MG TAB PO (11:29)
--- NOTE | 2022-01-02 14:48 | CMDISCH_ITS ---
- If Service Date Differs Date of service: 01/02/22 Time of Service: 14:48 LACE Index Scoring Tool - Questions: Length of Stay (in days): 2 Acuity (Admit via E.D.?): Yes Comorbidities: Connective Tissue Disease E.D. Visits: 1 - Answers: Total Score: 9 Risk of Readmission: Low Risk Care Management Discharge Reason for Hospitalization: Acute appendicitis, Laparoscopic Appendectomy Discharge Plan: Alex will discharge home via private vehicle with when medically ready. Alex declines [facility] services at this time. He will follow up with his PCP and surgical services as indicated. Patient/Family Education Needs: Review discharge instructions, discuss Ask Me Three.
[2022-01-02 15:43] VITALS: BP 120/67; PULSE 81; RESP 18; TEMP 36.8; O2SAT 94
[2022-01-02] MEDS: Polyethylene Glycol 3350 17 GM PACKET PO (16:00)
[2022-01-02] MEDS: Pravastatin 20 MG TAB PO (21:04)
[2022-01-02] MEDS: Amoxicillin 875/Clav. 125 TAB PO (21:05)
[2022-01-02 23:10] VITALS: BP 104/65; PULSE 81; RESP 18; TEMP 37.4; O2SAT 95
[2022-01-03 06:51] LABS: Abs Immature Grans 0.11 10^3/uL (0.0-0.06); Absolute Basophil Count 0.05 10^3/uL (0.0-0.2); Absolute Eosinophil Count 0.14 10^3/uL (0.0-0.7); Absolute Lymphocyte Count 1.88 10^3/uL (1.2-3.4); Absolute Monocyte Count 0.53 10^3/uL (0.1-0.8); Absolute Neutrophil Count 5.38 10^3/uL (1.2-6.7); Basophils % 0.6; Eosinophils % 1.7; HCT 39.8 % (40.0-50.0); HGB 13.3 g/dL (13.5-17.5); Immature Grans % 1.4; Lymphocytes % 23.2; MCH 30.1 pg (27.0-33.0); MCHC 33.4 % (32.0-36.0); MCV 90 fL (80-95); MPV 11.1 fL (8.0-11.0); Monocytes % 6.6; Neutrophils % 66.5; Platelet Count 199 10^3/uL (130-400); RBC 4.42 10^6/uL (4.36-5.78); RDW 12.7 % (11.8-14.1); RDW-SD 42.4 fL; WBC 8.09 10^3/uL (4.4-10.8)
[2022-01-03 07:08] LABS: Anion Gap 9.4 mmol/L (3-11); BUN 15 mg/dL (7-18); C-Reactive Protein 9.25 mg/dL (0.0-0.3); CO2 26.6 mmol/L (21.0-32.0); CREATININE 0.8 mg/dL (0.70-1.30); Calcium 8.5 mg/dL (8.5-10.1); Chloride 105 mmol/L (98-107); Glucose 101 mg/dL (74-106); Potassium 3.3 mmol/L (3.5-5.1); Sodium 141 mmol/L (136-145)
[2022-01-03 07:20] VITALS: BP 154/80; PULSE 87; RESP 20; TEMP 36; O2SAT 95
[2022-01-03] MEDS: Benazepril 10 MG TAB 20 MG PO (07:38)
[2022-01-03] MEDS: Mirabegron 25 MG TABCR PO (07:38)
[2022-01-03] MEDS: Docusate Sodium 100 MG CAP PO (07:38)
[2022-01-03] MEDS: amLODIPine 5 MG TAB 10 MG PO (07:38)
[2022-01-03] MEDS: Amoxicillin 875/Clav. 125 TAB PO (07:38)
[2022-01-03] MEDS: Psyllium PKT 1 EACH PO (07:38)
--- NOTE | 2022-01-03 12:45 | W.PM.PROGNOT ---
Date of Service Date of service: 01/03/22 Time of Service: 10:45 Assessment and Plan Assessment and plan (1) Acute appendicitis: Status: Acute Assessment and plan: POD #3 s/p laparoscopic appendectomy for suppurative appendicitis Tolerating regular diet, labs normalized Feeling much better after large BM this morning and would like to go home Continue PO abx, patients already picked up Rx from pharmacy PRN Miralax for constipation Encouraged ambulating and light activity once home No lifting >10 lbs for 4 weeks Patient instructed to call office Wednesday to schedule 1-2 week follow up appointment (2) Abdominal aortic aneurysm: Status: Acute Assessment and plan: Antihypertensives and close follow up with 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 (4) Essential hypertension: Status: Acute (5) Multiple sclerosis: Status: Acute Subjective Subjective Patient reports: no new complaints, feels better, tolerating a regular diet, bowel movement and afebrile; denies nausea or vomiting Exam Const General: cooperative, healthy appearing, comfortable and no acute distress Resp Effort & Inspection: normal respiratory effort, no audible wheezes and no cough GI Inspection: normal to inspection and incision (intact with skin glue) Palpation: soft, no guarding and tender (appropriate post op) Neuro General: patient alert, patient awake and patient oriented x3 Psych Mental Status: mental status grossly normal Speech and Movement: speech and movement normal Mood: congruent mood Affect: normal affect Objective Last Vital Signs Temp 96.8 F L 01/03/22 07:20 Pulse 87 01/03/22 07:20 Resp 20 01/03/22 07:20 BP 154/80 H 01/03/22 07:20 Pulse Ox 95 01/03/22 07:20 Laboratory Results - last 24 hr 01/03/22 01/03/22 05:46 05:46 WBC 8.09 RBC 4.42 Hgb 13.3 L Hct 39.8 L MCV 90 MCH 30.1 MCHC 33.4 RDW 12.7 Plt Count 199 MPV 11.1 H Immature Gran % 1.4 Neutrophils % 66.5 Lymphocytes % 23.2 Monocytes % 6.6 Eosinophils % 1.7 Basophils % 0.6 Nucleated RBC % 0.0 Absolute Neutrophils 5.38 Absolute Lymphocytes 1.88 Absolute Monocytes 0.53 Absolute Eosinophils 0.14 Absolute Basophils 0.05 Sodium 141 Potassium 3.3 L Chloride 105 Carbon Dioxide 26.6 Anion Gap 9.4 BUN 15 Creatinine 0.8 Estimated GFR/1.73 m2 >= 60.00 Glucose 101 Calcium 8.5 C-Reactive Protein 9.25 H
--- NOTE | 2022-01-17 09:19 | W.PM.PROGNOT ---
Date of Service Date of service: 01/02/22 Time of Service: 09:19 Assessment and Plan Assessment and plan (1) Acute appendicitis: Status: Resolved Assessment and plan: POD #3 s/p laparoscopic appendectomy for suppurative appendicitis Tolerating regular diet, labs normalized Feeling much better after large BM this morning and would like to go home Continue PO abx, patients already picked up Rx from pharmacy PRN Miralax for constipation Encouraged ambulating and light activity once home No lifting >10 lbs for 4 weeks Patient instructed to call office Wednesday to schedule 1-2 week follow up appointment (2) Abdominal aortic aneurysm: Status: Acute Assessment and plan: Antihypertensives and close follow up with 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 (4) Essential hypertension: Status: Acute (5) Multiple sclerosis: Status: Acute Subjective Subjective Patient reports: still having pain, tolerating a regular diet and afebrile; denies nausea or vomiting Interval history since last seen: feels constipated Exam Const General: cooperative, healthy appearing, comfortable and no acute distress Resp Effort & Inspection: normal respiratory effort, no audible wheezes and no cough GI Inspection: normal to inspection and incision (intact with skin glue) Palpation: soft, no guarding and tender (appropriate post op) Neuro General: patient alert, patient awake and patient oriented x3 Psych Mental Status: mental status grossly normal Speech and Movement: speech and movement normal Mood: congruent mood Affect: normal affect Objective Last Vital Signs Temp 96.8 F L 01/03/22 07:20 Pulse 87 01/03/22 07:20 Resp 20 01/03/22 07:20 BP 154/80 H 01/03/22 07:20 Pulse Ox 95 01/03/22 07:20
== END 2022-01-03 12:48 | disposition home or self-care (01) ==
LOC: ER 15:33 → SUR 18:46 → MS 21:47
PROVIDERS: Emergency Medicine; Surgery; Admitting Provider Surgery; Emergency Provider Registered Nurse Emergency; PCP Family Medicine; Visit Provider Surgery
PROC: 0DTJ4ZZ Resection of Appendix, Percutaneous Endoscopic Approach (ICD-10-PCS; CPT 44970; principal; 2021-12-31 17:40)
DX: K35.32 Acute appendicitis with perforation, localized peritonitis, and gangrene, without abscess (principal); D72.828 Other elevated white blood cell count; I71.4 Abdominal aortic aneurysm, without rupture; I70.0 Atherosclerosis of aorta; I74.11 Embolism and thrombosis of thoracic aorta; I77.79 Dissection of other specified artery; I71.2 Thoracic aortic aneurysm, without rupture; F41.9 Anxiety disorder, unspecified; I10 Essential (primary) hypertension; G35 Multiple sclerosis; F32.A Depression, unspecified; Z79.899 Other long term (current) drug therapy; N40.0 Benign prostatic hyperplasia without lower urinary tract symptoms; Q44.6 Cystic disease of liver; E78.00 Pure hypercholesterolemia, unspecified; G62.9 Polyneuropathy, unspecified; Z20.822 Contact with and (suspected) exposure to COVID-19
CPT/HCPCS: 44970; 36415; 71275; 80048; 80053; 87635; 96361; 96365; 96366; 96375; 99220; 99285; 74174; 81003; 83735; 84100; 85025; 86140; 88304; G0378; J1100; J2270; J2405; J2543; J2704; J3010; Q9967

== ENCOUNTER 2022-01-13 00:52 | Outpatient (CLI) | payer MEDICARE, SELFPAY ==
[2022-01-13 12:29] LABS: HCT 47.4 % (40.0-50.0); HGB 15.7 g/dL (13.5-17.5); MCH 30.5 pg (27.0-33.0); MCHC 33.1 % (32.0-36.0); MCV 92 fL (80-95); MPV 10.9 fL (8.0-11.0); Platelet Count 329 10^3/uL (130-400); RBC 5.15 10^6/uL (4.36-5.78); RDW 12.9 % (11.8-14.1); RDW-SD 43.8 fL; WBC 10.03 10^3/uL (4.4-10.8)
[2022-01-13 13:36] LABS: ALT 17 U/L (16-63); AST 11 U/L (15-37); Albumin 3.3 g/dL (3.4-5.0); Alkaline Phosphatase 74 U/L (46-116); Anion Gap 7.3 mmol/L (3-11); BUN 29 mg/dL (7-18); Bilirubin, Total 0.4 mg/dL (0.2-1.0); CO2 30.7 mmol/L (21.0-32.0); CREATININE 0.8 mg/dL (0.70-1.30); Calculated LDL 154 mg/dL (<100); Chloride 111 mmol/L (98-107); Cholesterol 227 mg/dL (<200); Glucose 69 mg/dL (74-106); HDL Cholesterol 62 mg/dL (40-60); Potassium 3.7 mmol/L (3.5-5.1); Sodium 149 mmol/L (136-145); TSH (W/Ref FT4) 0.68 uIU/mL (0.36-3.74); Total Protein 6.9 g/dL (6.4-8.2); Triglyceride 57 mg/dL (<150)
[2022-01-13 14:31] LABS: Calcium 9.3 mg/dL (8.5-10.1)
== END 2022-01-13 00:53 | disposition home or self-care (01) ==
LOC: LOS 00:52
PROVIDERS: PCP Family Medicine; Visit Provider Family Medicine
DX: I10 Essential (primary) hypertension (principal); E78.00 Pure hypercholesterolemia, unspecified; G35 Multiple sclerosis
CPT/HCPCS: 36415; 80053; 80061; 85027; 84443

== ENCOUNTER → 2022-01-16 09:58 | Outpatient (BNVA) | payer MEDICARE, SELFPAY | PROVIDERS: PCP Family Medicine; Referring Provider Family Medicine; Visit Provider Physical Therapy Assistant | DX: Z48.815 Encounter for surgical aftercare following surgery on the digestive system (principal) ==

== ENCOUNTER → 2023-05-26 02:39 | Outpatient (CLI) | payer MEDICARE, SELFPAY ==
--- NOTE | 2023-05-26 | DI.US_ITS ---
Exam(s) US RENAL EXAM: US RENAL CLINICAL HISTORY: NEUROGENIC BLADDER N31.9 EVAL BLADDER EMPTYING. TECHNIQUE: Gimenez scale, color and spectral Doppler were used. COMPARISON: US US RENAL from 01/07/[address] THORAX ABD/PEL CTA from 12/31/2021 FINDINGS: Renal size in cm: Right: 12.2 left: 13.7 Echogenicity: Normal Hydronephrosis: No Cyst or mass: 5.5 centimeter cyst upper pole right kidney. 0.7 centimeter maximal dimension cyst low er pole right kidney. 5.7 centimeter maximal dimension cyst upper pole left kidney. Nephrolithiasis: No Bladder:Minimal bladder wall trabeculation. No focal mass, stones or wall thickening. Both ureteral jets were visualized. Prevoid vol: 240 cc Postvoid vol:0 cc Prostate volume 32 cc. IMPRESSION: Bilateral renal cysts. Question mild bladder wall trabeculation. No postvoid residual. DATA REPOSITORY:
== END ==
PROVIDERS: PCP Family Medicine; Visit Provider Urology
DX: N31.9 Neuromuscular dysfunction of bladder, unspecified (principal)
CPT/HCPCS: 76770

== ENCOUNTER 2023-06-23 11:23 | Outpatient (CLI) | payer MEDICARE, SELFPAY ==
[2023-06-23 12:34] LABS: Calculated LDL 137 mg/dL (<100); Cholesterol 223 mg/dL (<200); Estimated GFR 75.14 (mL/min/1.73m2); HDL Cholesterol 76 mg/dL (40-60); Potassium 3.9 mmol/L (3.5-5.1); Triglyceride 54 mg/dL (<150)
== END 2023-06-23 11:24 | disposition home or self-care (01) ==
LOC: LOS 11:23
PROVIDERS: PCP Family Medicine; Referring Provider Family Medicine; Visit Provider Family Medicine
DX: E78.5 Hyperlipidemia, unspecified (principal); I10 Essential (primary) hypertension
CPT/HCPCS: 36415; 80061; 82565; 84132

== ENCOUNTER 2023-10-02 18:47 | Emergency (ER) | payer MEDICARE, SELFPAY ==
[2023-10-02 18:55] VITALS: BP 171/80; PULSE 103; RESP 16; TEMP 36.4; O2SAT 98
--- NOTE | 2023-10-02 19:07 | W.ED.GENAD ---
Discharge Plan Disposition Patient Disposition: Home Condition: Stable Discharge Details Clinical Impression: Complaints of leg weakness, Multiple sclerosis Primary Care Provider: Chandana Weathers ED Provider: Parris Arango Home Meds and New Rx's Prescriptions: Continued amlodipine-benazepril 10-20 mg capsule 1 cap PO DAILY Patient Comments: increased by Dr. Craig at [facility] cholecalciferol (vitamin D3) 100 mcg (4,000 unit) tablet 100 mcg PO DAILY Myrbetriq 25 mg tablet extended release 24 hr 25 mg PO DAILY baclofen 10 mg tablet 10 mg PO BID PRN vitamin B complex Tablet 1 tab PO DAILY rosuvastatin 5 mg tablet 5 mg PO DAILY Qty: 90 3RF Discharge Instructions Instructions: Multiple Sclerosis (DC), Weakness (ED) Additional Instructions: NO acute changes noted on your lab workup today or CT imaging. Please follow up with Neurology in the next 3-5 days. Follow up with primary care provider in 3-5 days. Return to ED sooner if any worsening or concerns. Increase oral fluids. Referrals: Chandana Weathers MD [Primary Care Provider] - 5 days HPI General Mode of arrival: wheelchair. Date/Time Provider Initiated Documentation: 10/02/23 19:05. Limitations to Documentation: no limitations. Information obtained by: patient, RN notes reviewed and old records reviewed. HPI Narrative: 83 year old male presents to the ER with cc of leg weakness after receiving a shingles vaccination today. He does have a history of multiple scleroisis, HTN, Aortic aneurysm, depression, He does normally at [facility] use a walker, has notable decreased hip flexion to right hip, and decreased right knee flexion, he reports his movements upon arrival are at baseline. THey were more pronounced prior to arrival. He states that he woke up was on the toilet and was unable to stand up which is not normal for him. He denies any other associated symptoms denies any chest pain abdominal pain fever chills or any other associated symptoms. He has no headache no blurry vision he is alert and oriented x 4. Related Data Home Medications Medication Instructions Recorded Confirmed amlodipine 10 mg-benazepril 20 mg 1 cap PO DAILY 12/18/20 10/02/23 capsule cholecalciferol (vitamin D3) 100 100 mcg PO DAILY 12/18/20 10/02/23 mcg (4,000 unit) tablet mirabegron 25 mg tablet,extended 25 mg PO DAILY 12/10/21 10/02/23 release 24 hr (Myrbetriq) baclofen 10 mg tablet 10 mg PO BID PRN 12/09/22 10/02/23 vitamin B complex 1 tab PO DAILY 12/09/22 10/02/23 rosuvastatin 5 mg tablet 5 mg PO DAILY #90 tabs 03/31/23 10/02/23 Previous Rx's Medication Instructions Recorded rosuvastatin 5 mg tablet 5 mg PO DAILY #90 tabs 03/31/23 Allergies Allergy/AdvReac Type Severity Reaction Status Date / Time weed pollen Allergy Intermediate sneezing, Verified 10/02/23 18:54 body aches and pains rosuvastatin AdvReac Intermediate Increased Verified 10/02/23 18:54 weakness General Stated Complaint: GenMedical COLLIN: 3 Review of Systems Constitutional Constitutional: Reports weakness Eyes Eyes: Denies loss of vision Musculoskeletal Musculoskeletal: Denies numbness Neurologic Neurologic: Reports as per HPI, Reports localized weakness, Denies loss of vision, Denies memory loss, Denies numbness and Reports weakness Psychiatric Psychiatric: Denies memory loss Exam Narrative Exam Narrative: Constitutional: Alert and oriented x3. Appears stated age. Normal body habitus. Head: Normocephalic, no trauma. Eyes: Pupils PERRL, Red reflex noted, EOM's intact. Eyelids symmetrical without lesions, discharge, or swelling. ENT: Bilateral TM's WNL, External ear normal to inspection, no mastoid TTP, swelling, or erythema, Nasal turbinates WNL, no nasal discharge. Normal dentition, Posterior pharynx WNL, no exudate. Chest: RRR, Normal S1, S2, distal pulses intact. Resp: Lungs clear to auscultation bilaterally, no wheezes, rales, or rhonchi. Abdomen: Soft, non-distended, Normoactive bowel sounds all 4 quads. Musculoskeletal: Normal gait, 5/5 strength to all four extremities. Skin: No suspicious rashes or lesions. Capillary refill less than 2 sec. Neurologic: Cranial nerves II-XII intact. Alert and oriented x 3. Hematologic/Lymphatic: No ecchymosis, no lymphadenopathy. Neuro Motor: strength abnormal right lower extremity flexion 1 / 5 and extension 1 / 5 Course Vital Signs Vital signs: Vital Signs Temperature 36.4 C L 10/02/23 18:55 Pulse 103 H 10/02/23 18:55 Respiratory Rate 16 10/02/23 18:55 Blood Pressure 171/80 H 10/02/23 18:55 Pulse Oximetry 98 10/02/23 18:55 Temperature 36.4 C L 10/02/23 18:55 Temperature Source Temporal Artery Scan 10/02/23 18:55 Pulse 103 H 10/02/23 18:55 Respiratory Rate 16 10/02/23 18:55 Respiratory Effort Normal, Non-Labored 10/02/23 18:58 Blood Pressure 171/80 H 10/02/23 18:55 Blood Pressure Position Sitting 10/02/23 18:55 Pulse Oximetry 98 10/02/23 18:55 Oxygen Delivery Method Room Air 10/02/23 18:55 Oxygen Flow Rate 0 10/02/23 18:55 Pain Level 0 10/02/23 18:55 Medical Decision Making 83 year old male presents to the ER with cc of leg weakness after receiving a shingles vaccination today. He does have a history of multiple scleroisis, HTN, Aortic aneurysm, depression, He does normally at [facility] use a walker, has notable decreased hip flexion to right hip, and decreased right knee flexion, he reports his movements upon arrival are at baseline. THey were more pronounced prior to arrival. He states that he woke up was on the toilet and was unable to stand up which is not normal for him. He denies any other associated symptoms denies any chest pain abdominal pain fever chills or any other associated symptoms. He has no headache no blurry vision he is alert and oriented x 4. Blood work ordered including CRP and ESR, urinalysis, CT lumbar spine to rule out lesion. Do suspect multiple sclerosis exacerbation brought on by vaccination versus any acute abnormality. Discussed lab results and CT with patient and verbalized understanding. He does see neurology at [facility] and he reports that he will follow-up with them. Discussed strict return instructions and home care. This text was generated using compareit4meation system, please disregard any oddities of phrase or misspellings. Medical Records Medical records reviewed: Yes I reviewed the patient's medical records. Imaging Data Radiologic Study: Imaging: CT Scan Radiologist's impression: Exam: CT Lumbar Spine Without Contrast Exam date and time: 10/02/2023 7:49 PM Age: 83 years old Clinical indication: Other: Leg weakness TECHNIQUE: Imaging protocol: Computed tomography of the lumbar spine without contrast. COMPARISON: CT THORAX ABD/PEL CTA 12/31/2021 4:14 PM FINDINGS: Bones/joints: Transitional anatomy. Segments are designated with lumbarized S1. Alignment is normal. No acute fracture. Diffuse degenerative disc disease and facet arthropathy. No central stenosis. No severe neural foraminal narrowing. Vasculature: Redemonstration of abdominal aortic aneurysm but not fully imaged. Soft tissues: Unremarkable. IMPRESSION: Redemonstration of abdominal aortic aneurysm but not fully imaged. Lab Data Lab results reviewed: Yes I reviewed the patient's lab results. Labs: Laboratory Tests Range/Units 10/02/23 10/02/23 10/02/23 00:00 19:10 20:00 WBC (4.4-10.8) 10^3/uL 8.42 Cancelled RBC (4.36-5.78) 10^6/uL 5.26 Cancelled Hgb (13.5-17.5) g/dL 15.8 Cancelled Hct (40.0-50.0) % 47.2 Cancelled MCV (80-95) fL 90 Cancelled MCH (27.0-33.0) pg 30.0 Cancelled MCHC (32.0-36.0) % 33.5 Cancelled RDW (11.8-14.1) % 12.3 Cancelled Plt Count (130-400) 10^3/uL 201 Cancelled MPV (8.0-11.0) fL 11.1 H Cancelled Immature Gran % 1.0 Cancelled Neutrophils % 82.4 Cancelled Band Neutrophils % Cancelled Lymphocytes % 8.9 Cancelled Atypical Lymphs % Cancelled Monocytes % 7.2 Cancelled Eosinophils % 0.1 Cancelled Basophils % 0.4 Cancelled Metamyelocytes % Cancelled Myelocytes % Cancelled Promyelocytes % Cancelled Other Cells % Cancelled Nucleated RBC % (0.0-0.3) % 0.0 Cancelled Absolute Neutrophils (1.2-6.7) 10^3/uL 6.94 H Cancelled Absolute Lymphocytes (1.2-3.4) 10^3/uL 0.75 L Cancelled Absolute Monocytes (0.1-0.8) 10^3/uL 0.61 Cancelled Absolute Eosinophils (0.0-0.7) 10^3/uL 0.01 Cancelled Absolute Basophils (0.0-0.2) 10^3/uL 0.03 Cancelled RBC Morphology Cancelled Polychromasia Cancelled Hypochromasia Cancelled Poikilocytosis Cancelled Basophilic Stippling Cancelled Anisocytosis Cancelled Microcytosis Cancelled Macrocytosis Cancelled Spherocytes Cancelled Tear Drop Cells Cancelled Ovalocytes Cancelled Stomatocytes Cancelled [place] Bodies Cancelled Central Cells/Echinocytes Cancelled Acanthocytes (Spur) Cancelled Schistocytes Cancelled ESR (0-20) mm/hr 7 Cancelled Sodium (136-145) mmol/L 140 Potassium (3.5-5.1) mmol/L 4.3 Chloride (98-107) mmol/L 105 Carbon Dioxide (21.0-32.0) mmol/L 22.2 Anion Gap (3-11) mmol/L 12.8 H BUN (7-18) mg/dL 19 H Creatinine (0.70-1.30) mg/dL 0.8 Est GFR (CKD-EPI 2020) (mL/min/1.73m2) 88.36 Glucose (74-106) mg/dL 107 H Calcium (8.5-10.1) mg/dL 9.0 Total Bilirubin (0.2-1.0) mg/dL 0.9 AST (15-37) U/L 23 ALT (16-63) U/L 17 Alkaline Phosphatase (46-116) U/L 92 C-Reactive Protein (<or=0.5) mg/dL 1.85 H Total Protein (6.4-8.2) g/dL 7.0 Albumin (3.4-5.0) g/dL 3.4 Urine Color (Yellow) Yellow Urine Clarity (Clear) Clear Urine pH (5-8) 7.0 Ur Specific [place] (1.005-1.025) 1.025 Urine Protein (Neg-Trace) mg/dL 30 H Urine Ketones (Negative) mg/dL 40 H Urine Blood (Negative) Negative Urine Nitrite (Negative) Negative Urine Bilirubin (Negative) Small H Urine Urobilinogen (Up to 0.2) mg/dL 1.0 H Ur Leukocyte Esterase (Negative) Negative Urine RBC (0-2) HPF 0-2 Urine WBC (0-5) HPF 0-2 Ur Epithelial Cells (Negative) HPF Negative Urine Crystals (Negative) HPF Negative Urine Bacteria (Negative) HPF Few Urine Casts (Negative) LPF Negative Urine Mucus (Negative) Trace Urine Other (Negative) Few Renal Ur Culture Indicated? No Urine Glucose (Negative) mg/dL Negative Quality:SDOH Health Related Social Needs: No Data to Display PFSH All Active Problems (Updated 10/02/23 @ 21:06 by Parris rAango NP) Complaints of leg weakness (Acute) Seborrheic keratoses (Acute) Constipation (Acute) Urinary retention (Acute) Ganglion cyst of tendon sheath of right hand (Acute) Tremor (Acute) 11/2021-history of benign tremor of upper extremity. Likely iatrogenic and related to sertraline-resolved with sertraline discontinued External hemorrhoid (Acute) Adenomatous colon polyp (Acute) 03/30/[address] Jaci Hill, [facility], Villous/Tubulovillous Adenoma/Sessile Serrated Adenoma. Many large diverticula throughout the colon, because of diverticula, Dr Hill does not recommend further colonoscopies. Abdominal aortic aneurysm (Acute 02/06/08) US 07/10 3.1 x 3.6 cm. Stable . 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 F/U CT at [facility] stable on US 07/10 Depressive disorder (Acute 11/23/13) Medical History Multiple sclerosis Hypertension Aortic aneurysm Anxiety Depression Alcoholism (11/23/13) Cortical cataract of left eye Nuclear sclerotic cataract of left eye Cortical cataract of right eye Nuclear sclerotic cataract of right eye Surgical History Status post cataract extraction and insertion of intraocular lens of right eye (05/27/18) Status post cataract extraction and insertion of intraocular lens of left eye (06/10/18) Status post cataract extraction and insertion of intraocular lens of right eye (05/27/18) Family History Mother No problems noted. Father Heart disease Hyperlipidemia Sister Diabetes Brother No problems noted. Grandfather No problems noted. Grandfather No problems noted. Grandmother No problems noted. Grandmother No problems noted. Social History Smoking/Tobacco Use Status: Former Tobacco Use tobacco type: cigarettes and pipe Quit Date: 07/26/93 Tobacco: How many years used: 33 Second Hand Exposure: Yes Smoking risk assessment performed?: Yes Alcohol Intake: former Drug use: Never Substance use type: does not use Household members: spouse and children Housing: house Communication Needs: None Do you need help understanding health information?: Never Pets and animals: Yes Pets and animals: cat(s) and dog(s) Sexually active: No Do you think of yourself as: straight/heterosexual Current gender identity: male What is your relationship status?: How often do you talk on the phone with friends or family?: never How often do you get together with friends or relatives?: never Do you belong to any clubs or organized social groups?: no Panel score (0-1 are the most socially isolated patients): 1 What type of physical activity do you participate in: bicycling Duration: 45-60 minutes/day Frequency: 5-6 times per week Hannah/Sabianism: No preference Special hannah needs: No Seatbelt use: always Helmet use: No Drive intox or ride w/intox driver salesman: No Do you feel safe at home: Yes Do you feel safe in your relationship?: Yes
[2023-10-02 19:22] VITALS: BP 154/65; RESP 16; O2SAT 96
--- NOTE | 2023-10-02 19:28 | NUR.NOTE ---
Pt states he experienced loss of movement in both legs earlier today and as of now he is experiencing extreme weakness in his rt leg only
[2023-10-02 19:45] LABS: ALT 17 U/L (16-63); AST 23 U/L (15-37); Albumin 3.4 g/dL (3.4-5.0); Alkaline Phosphatase 92 U/L (46-116); Anion Gap 12.8 mmol/L (3-11); BUN 19 mg/dL (7-18); Bilirubin, Total 0.9 mg/dL (0.2-1.0); C-Reactive Protein 1.85 mg/dL (<or=0.5); CO2 22.2 mmol/L (21.0-32.0); CREATININE 0.8 mg/dL (0.70-1.30); Chloride 105 mmol/L (98-107); Estimated GFR 88.36 (mL/min/1.73m2); Glucose 107 mg/dL (74-106); Potassium 4.3 mmol/L (3.5-5.1); Sodium 140 mmol/L (136-145)
[2023-10-02 19:46] LABS: Abs Immature Grans 0.08 10^3/uL (0.0-0.06); Absolute Basophil Count 0.03 10^3/uL (0.0-0.2); Absolute Eosinophil Count 0.01 10^3/uL (0.0-0.7); Absolute Lymphocyte Count 0.75 10^3/uL (1.2-3.4); Absolute Monocyte Count 0.61 10^3/uL (0.1-0.8); Absolute Neutrophil Count 6.94 10^3/uL (1.2-6.7); Basophils % 0.4; ESR 7 mm/hr (0-20); Eosinophils % 0.1; HCT 47.2 % (40.0-50.0); HGB 15.8 g/dL (13.5-17.5); Lymphocytes % 8.9; MCHC 33.5 % (32.0-36.0); MCV 90 fL (80-95); MPV 11.1 fL (8.0-11.0); Monocytes % 7.2; Neutrophils % 82.4; Platelet Count 201 10^3/uL (130-400); RBC 5.26 10^6/uL (4.36-5.78); RDW 12.3 % (11.8-14.1); RDW-SD 40.5 fL; WBC 8.42 10^3/uL (4.4-10.8)
--- NOTE | 2023-10-02 20:03 | ED.PROG_ITS ---
Date of service: 10/02/23 Time of Service: 20:03 Medical Decision Making 83-year-old male with a past medical history of MS, Dihlylw-Zvwac-Kvczm disease, hypertension, cholesterol, kidney stones, presents for evaluation of weakness. Patient was seen and assessed by Rere Castrejon. Please refer to HPI, physical exam, assessment and plan. I was asked to consult on the patient. Patient states that he received shingle vaccine yesterday, and today developed what he described as paralysis of his lower extremities. That being said he chronically has inability to dorsiflex his right foot, and has notable weakness for flexion extension at the knee and flexion extension at the hip on the right. He has some chronic weakness in the left lower extremity but is able to use it well. He states that today he noticed significant increased weakness of his extremities, he normally uses a walker at baseline, but had a challenge with this. He states that the weakness was not peripheral but felt to be more central in his hip. He noticed difficulty with standing up. He denies any new numbness or tingling in the lower extremities. He denies any distal to proximal weakness. He states that at this time the weakness is actually notably improved. Physical exam for plantar and dorsiflexion of the feet, flexion and extension of the knees, and flexion extension at the hips demonstrate per the patient that he is actually back at his baseline. He demonstrates good plantar dorsiflexion of the left foot, flexion extension of the left knee, flexion extension of the left hip. His right leg demonstrates his chronic baseline per the patient. Patient is very concerned for Guillain-Rosales? secondary to the pamphlet insert for potential side effects, and I certainly understand where his concern is coming from. However thankfully at this time his symptoms appear clinically inconsistent with Guillain-Rosales? syndrome. There is no distal to proximal weakness. There is no signs of respiratory distress. No other abnormalities otherwise that would suggest skin break. At being said we did discuss potential lumbar puncture, and the patient would rather not any her relic evaluations if there is potential for avoidance. His symptoms to me at this time appear notably consistent with an MS exacerbation after the shingles shot. Workup will include basic labs, ESR and CRP, and CT imaging. No MRI is available at this time at night. No indication for intubation or anything of that neurologic nature as the patient shows no signs to suggest Gamber a syndrome at this time based on current clinical assessment. Bertin Cash will continue to manage the patient's care. I agree with the plan at this time. Quality:SDOH Health Related Social Needs: No Data to Display Discharge Plan Discharge Details Chief Complaint: GenMedical Primary Care Provider: Chandana Weathers ED Provider: Parris Arango Home Meds and New Rx's Prescriptions: No Action amlodipine-benazepril 10-20 mg capsule 1 cap PO DAILY Patient Comments: increased by Dr. Craig at [facility] cholecalciferol (vitamin D3) 100 mcg (4,000 unit) tablet 100 mcg PO DAILY Myrbetriq 25 mg tablet extended release 24 hr 25 mg PO DAILY baclofen 10 mg tablet 10 mg PO BID PRN vitamin B complex Tablet 1 tab PO DAILY rosuvastatin 5 mg tablet 5 mg PO DAILY Qty: 90 3RF
--- NOTE | 2023-10-02 20:06 | DI.CT_ITS ---
Exam(s) CT LUMBAR SPINE WO EXAM: CT LUMBAR SPINE WO CLINICAL HISTORY: Leg weakness. TECHNIQUE: Imaging Protocol: Axial computed tomography images with coronal and sagittal reformatted images were created and reviewed COMPARISON: CT CT THORAX ABD/PEL CTA from 12/31/2021 FINDINGS: Bones: The last intervertebral disc space is designated the L5/S1 level for the numbering purpose of this examination. There are endplate osteophytes at several levels of the lumbar spine particularly at L5-S1. There is disc space narrowing and a vacuum disc at L5-S1. There is no spondylolysis or spo ndylolisthesis. No fracture is seen. T12-L1: No disc herniations or bulges are present. No central spinal canal or neural foraminal steno sis. L1-2: No disc herniations or bulges are present. No central spinal canal or neural foraminal stenosi s. L2-3: No disc herniations or bulges are present. No central spinal canal or neural foraminal stenosi s. L3-4: There is a mild diffuse disc bulge. No central spinal canal or neural foraminal stenosis. L4-5: No disc herniations or bulges are present. No central spinal canal or neural foraminal stenosi s. L5-S1: No disc herniations or bulges are present. There is mild neural foraminal narrowing bilatera lly, right greater than left. No significant central spinal canal stenosis. Soft Tissues: The visualized SI joints and sacrum are will maintained. The paraspinal soft tissues a re unremarkable. There is an infrarenal abdominal aortic aneurysm. It is incompletely imaged but shan sures at least 5 cm in diameter. Atherosclerotic calcification of the abdominal aorta is present. T here is diverticulosis of the sigmoid colon without evidence of acute diverticulitis. There are bila teral renal cysts again noted. No follow-up is recommended. IMPRESSION: 1. Degenerative changes in the lumbar spine without significant central spinal canal stenosis. Mild narrowing of the neural foramen is seen at L5-S1. 2. No acute fracture or subluxation. 3. Abdominal aortic aneurysm is again noted but incompletely imaged. RADIATION DOSE DELIVERED: Total DLP Total DLP DATA REPOSITORY: All CT scans at this facility are submitted to the National Radiology Data Registry (NRDR) Dose Index Registry (DIR) with the [employer] (ACR). RADIATION OPTIMIZATION: All CT scans at this facility use at least one of these dose optimization te chniques: automated exposure control; mA and/or kV adjustment per patient size (includes targeted exa ms where dose is matched to clinical indication); or iterative reconstruction.
[2023-10-02 20:36] LABS: Bilirubin Small (Negative); Blood Negative (Negative); Clarity Clear (Clear); Glucose Negative (Negative); Ketones 40 mg/dL (Negative); Leukocyte Esterase Negative (Negative); Nitrite Negative (Negative); Specific Gravity 1.025 (1.005-1.025)
[2023-10-02 20:41] LABS: Bacteria Few HPF (Negative); C & S Indicated? No; Casts Negative LPF (Negative); Crystals Negative HPF (Negative); Epithelial Cells Negative HPF (Negative); Mucus Trace (Negative); Other Cells Few Renal (Negative); RBC 0-2 HPF (0-2); WBC 0-2 HPF (0-5)
--- NOTE | 2023-10-02 20:50 | DI.VRAD_ITS ---
Addendum created by Riki Smith MD on 10/02/2023 8:50:48 PM EST: The impression should include an additional line as follows: Degenerative changes without stenosis or severe neural foraminal narrowing. No acute bony abnormality. Initial report created on 10/02/2023 8:50:01 PM EST: PROCEDURE INFORMATION: Exam: CT Lumbar Spine Without Contrast Exam date and time: 10/02/2023 7:49 PM Age: 83 years old Clinical indication: Other: Leg weakness TECHNIQUE: Imaging protocol: Computed tomography of the lumbar spine without contrast. COMPARISON: CT THORAX ABD/PEL CTA 12/31/2021 4:14 PM FINDINGS: Bones/joints: Transitional anatomy. Segments are designated with lumbarized S1. Alignment is normal. No acute fracture. Diffuse degenerative disc disease and facet arthropathy. No central stenosis. No severe neural foraminal narrowing. Vasculature: Redemonstration of abdominal aortic aneurysm but not fully imaged. Soft tissues: Unremarkable. IMPRESSION: Redemonstration of abdominal aortic aneurysm but not fully imaged. Dictated and Authenticated by: Riki Smith MD. Ordering:SONNY Nye MD
[2023-10-02 21:18] VITALS: BP 155/72; PULSE 76; RESP 16; O2SAT 97
== END 2023-10-02 21:19 | disposition home or self-care (01) ==
PROVIDERS: Emergency Provider Registered Nurse Emergency; PCP Family Medicine
DX: R20.2 Paresthesia of skin (principal); M62.831 Muscle spasm of calf; G35 Multiple sclerosis; I10 Essential (primary) hypertension
CPT/HCPCS: 00123; 80053; 85652; 99284; 72131; 81003; 81015; 85025; 86140

== ENCOUNTER 2024-09-05 03:20 | Outpatient (CLI) | payer MEDICARE, SELFPAY ==
[2024-09-05 12:01] LABS: Abs Immature Grans 0.06 10^3/uL (0.0-0.06); Absolute Basophil Count 0.06 10^3/uL (0.0-0.2); Absolute Eosinophil Count 0.12 10^3/uL (0.0-0.7); Absolute Lymphocyte Count 2.04 10^3/uL (1.2-3.4); Absolute Monocyte Count 0.56 10^3/uL (0.1-0.8); Absolute Neutrophil Count 5.82 10^3/uL (1.2-6.7); Basophils % 0.7 %; Eosinophils % 1.4 %; HCT 49.9 % (40.0-50.0); HGB 16.4 g/dL (13.5-17.5); Immature Grans % 0.7 %; Lymphocytes % 23.6 %; MCH 30.7 pg (27.0-33.0); MCHC 32.9 % (32.0-36.0); MCV 93 fL (80-95); MPV 10.4 fL (8.0-11.0); Monocytes % 6.5 %; Neutrophils % 67.1 %; Platelet Count 235 10^3/uL (130-400); RBC 5.34 10^6/uL (4.36-5.78); RDW 12.9 % (11.8-14.1); RDW-SD 44.3 fL; WBC 8.66 10^3/uL (4.4-10.8)
[2024-09-05 12:11] LABS: Bilirubin Negative (Negative); Blood Negative (Negative); Clarity Clear (Clear); Glucose Negative (Negative); Ketones Negative (Negative); Leukocyte Esterase Negative (Negative); Nitrite Negative (Negative); Urobilinogen 0.2 mg/dL (Up to 0.2)
[2024-09-05 12:37] LABS: ALT 14 U/L (16-63); AST 11 U/L (15-37); Albumin 3.4 g/dL (3.4-5.0); Alkaline Phosphatase 89 U/L (46-116); Anion Gap 5.7 mmol/L (3-11); BUN 18 mg/dL (7-18); CO2 31.3 mmol/L (21.0-32.0); CREATININE 0.9 mg/dL (0.70-1.30); Calcium 9.3 mg/dL (8.5-10.1); Chloride 106 mmol/L (98-107); Estimated GFR 84.74 (mL/min/1.73m2); Glucose 110 mg/dL (74-106); Potassium 3.7 mmol/L (3.5-5.1); Sodium 143 mmol/L (136-145)
== END 2024-09-05 03:21 | disposition home or self-care (01) ==
LOC: LBO 03:20
PROVIDERS: PCP Family Medicine; Visit Provider Psychiatry & Neurology Neurology
DX: G43.909 Migraine, unspecified, not intractable, without status migrainosus (principal); G35 Multiple sclerosis
CPT/HCPCS: 36415; 80053; 81003; 85025

== ENCOUNTER 2025-02-26 09:39 | Emergency (ER) | payer MEDICARE, SELFPAY ==
[2025-02-26 09:43] VITALS: BP 103/58; PULSE 85; RESP 20; TEMP 36.6; O2SAT 97
--- NOTE | 2025-02-26 09:55 | ED.GENADUL_ITS ---
Discharge Plan Disposition Patient Disposition: Home Condition: Good Discharge Details Clinical Impression: Fracture of distal end of fibula, Contusion of knee Primary Care Provider: Chandana eWathers ED Provider: Trish Marie Home Meds and New Rx's Prescriptions: Continued amlodipine-benazepril 10-20 mg capsule 1 cap PO DAILY Patient Comments: increased by Dr. Craig at [facility] aspirin 81 mg tablet,delayed release (DR/EC) 81 mg PO DAILY montelukast [Singulair] 10 mg tablet 10 mg PO DAILY Qty: 30 2RF mirabegron 50 mg tablet extended release 24 hr 50 mg PO DAILY cholecalciferol (vitamin D3) 125 mcg (5,000 unit) capsule 125 mcg PO DAILY [id number] 1,000mcg-680mcg DFE-1.5 mg tablet,chewable 1 tab PO DAILY Discharge Instructions Instructions: Lower Leg Fracture ED Additional Instructions: As we discussed, your x-rays reveal a distal fibula fracture. This can be treated with the boot which you been placed in. Please continue to use this until cleared by orthopedics. Please encourage rest, ice, elevation. Tylenol and ibuprofen as needed for discomfort, please take as directed on the packaging. Please call orthopedics to schedule follow-up appointment, they will likely want to see him in about 2 weeks. Number listed below. Please continue with your walker but go slower given the new boot which may add weight and difficulty with your mobility. Attached a referral for physical therapy should you decide that you would like to work with them while you regain your typical gait. Referral for palliative care has also been sent. If you develop any new or worsening symptoms please seek care urgently once again. You may use your baclofen as previously prescribed for muscle spasm. Stand Alone Forms: Physical Therapy Referral Referrals: Rj Pedroza MD [ [facility] STAFF PHYSICIAN, Orthopaedic Surgical] Chandana Weathers MD [Primary Care Provider, Medicine] Discharge Data Discharge Date/Time-TO BE ENTERED AT DEPARTURE: 02/26/25 13:48 HPI General Date/Time Provider Initiated Documentation: 02/26/25 09:50 . Limitations to Documentation: no limitations . Information obtained by: patient, family () and RN notes reviewed . History of Present Illness 85 year old M presents to the emergency department with the chief complaint of right knee and ankle pain after fall, described as moderate, Quality is described as aching and sharp, and is localized to the right and lower extremity. Patient reports no radiation. Patient started experiencing this hour(s) and it has been constant. Immobilization improves symptom(s), Movement worsens symptoms . Patient notes no other symptoms.. Patient did receive the following treatments prior to arrival, none Related Data Home Medications ?Medication ?Instructions ?Recorded ?Confirmed amlodipine 10 mg-benazepril 20 mg 1 cap PO DAILY 12/1802/26/25 capsule B12 1,000 1 tab PO DAILY 12/30/2311/17 mcg-methyltetrahydrofolate 680 mcg DFE-B6 1.5 mg chew tablet cholecalciferol (vitamin D3) 125 125 mcg PO DAILY [place] min D3 12/30/23 02/26/25 mcg (5,000 unit) capsule supplementation mirabegron 50 mg tablet,extended 50 mg PO DAILY Urinar y incontinence 12/30/23 02/26/25 release 24 hr aspirin 81 mg tablet,delayed 81 mg PO DAILY For abdomi nal 01/23/25 02/26/25 release aortic aneurysm. montelukast 10 mg tablet 10 mg PO DAILY #30 tabs 070 08/1902/26/25 (Singulair) Previous Rx's ?Medication ?Instructions ?Recorded montelukast 10 mg tablet 10 mg PO DAILY #30 tabs 070 08/19 (Singulair) Allergies Allergy/AdvReac Type Severity Reaction Status Date / Time weed pollen Allergy Intermediate sneezing, Verified 02/26/25 09:46 body aches and pains rosuvastatin AdvReac Intermediate Increased Verified 02/26/25 09:46 weakness General Stated Complaint: Fall/Non TraumaCriteria COLLIN: 3 Review of Systems Constitutional Constitutional: Reports as per HPI, Denies chills, Denies fever(s), Reports frequent falls (reports only ever few years), Denies headache(s) and Reports weakness (chronic) Eyes Eyes: Reports as per HPI, Denies blurry vision, Denies change in vision and Denies loss of vision ENT Ears, Nose, Mouth, and Throat: Denies vertigo, Denies headache(s) and Reports disequilibrium (chronic) Cardiovascular Cardiovascular: Reports as per HPI, Denies chest pain, Denies lightheadedness, Denies radiating jaw, neck or arm pain and Denies dyspnea Respiratory Respiratory: Reports as per HPI, Denies chest congestion, Denies cough and Denies dyspnea Gastrointestinal Gastrointestinal: Reports as per HPI, Denies abdominal pain, Denies nausea and Denies vomiting Genitourinary Genitourinary: Reports system reviewed and no additional complaints, except as documented (denies change in urinary habits) Musculoskeletal Musculoskeletal: Reports as per HPI, Denies numbness and Denies tingling Integumentary/Breasts Skin/Breast: Reports as per HPI and Denies rash Neurologic Neurologic: Reports as per HPI, Denies abnormal movements, Denies abnormal speech, Denies behavioral changes, Denies vertigo, Reports frequent falls (reports only ever few years), Denies headache(s), Reports localized weakness (chronic RLE weakness associated with MS), Denies loss of vision, Denies numbness, Denies sensory deficit, Denies tingling, Reports tremor(s) (RUE, reported to be chronic and unchanged), Reports disequilibrium (chronic) and Reports weakness (chronic) Psychiatric Psychiatric: Denies behavioral changes Exam Const General: cooperative, no acute distress, well developed, well groomed, frail appearing and ill appearing chronically Nutritional Appearance: average body habitus (has focal muscle wasting) and well nourished Orientation: alert, awake and oriented x3 HENMT Head: normal to inspection, no palpable skull fracture, normocephalic and atraumatic Ears: hearing grossly normal bilaterally and external ears normal General nose exam: external nose normal Mouth: oral mucosae normal and moist mucous membranes Throat: posterior oropharynx normal Eyes General: appearance normal, both eyes and all related structures Alignment and Position: alignment normal Periorbital: periorbital findings normal Eyelids: eyelids normal Sclera: sclerae normal Cornea: corneas normal Pupils: PERRL EOM: EOM intact bilaterally Neck Neck: normal visual inspection and full ROM Resp Effort & Inspection: normal respiratory effort, able to speak in complete sentences and no respiratory distress Auscultation: clear to auscultation bilaterally, no rales, no rhonchi and no wheezes Cardio Rate: regular rate Rhythm: regular rhythm Heart Sounds: S1 normal and S2 normal Back/Spine/Pelvis Cervical Spine: normal cervical lordosis and cervical ROM normal Skin General skin exam: no rashes or lesions noted and ecchymosis (right ankle) Neuro General: patient alert, patient awake and patient oriented x3 Cranial Nerves: CN's II-XI intact bilaterally Cognition: normal cognition Speech: speech normal Motor: strength not 5/5 throughout (weakness starting at hip flexors of RLE), no pronator drift and tremor (RUE) Sensory Exam: no sensory deficits noted Coordination: tcmdnk-ki-kzkr test normal Extrem General: capillary refill normal, no pedal edema, no calf tenderness and other (muscle wasting RLE, prominent in thigh) Right lower extremity: normal capillary refill, hip/thigh Details: ecchymosis (ankle); no tenderness, no swelling, ROM abnormal (limited strength with hip flexion and ankle flexion, full passive ROM), no lacerations, no deformity and no unusual warmth, knee Details: normal to inspection, normal ROM and knee ligament exam normal; no tenderness, no swelling, no ecchymosis and no deformity, ankle Details: tenderness Location: of the lateral malleolus, swelling Details: diffusely, normal ROM and ecchymosis; no abrasions, no lacerations and achilles tendon exam normal and foot Details: normal capillary refill, normal to inspection, toes with normal ROM, no edema, vascular exam Details: dorsalis pedis pulse present, posterior tibial pulse present and normal capillary refill and motor-sensory exam Details: light-touch normal; no tenderness, no unusual warmth and no ecchymosis; no cyanosis and no edema Course Vital Signs Vital signs: Vital Signs Temperature 36.6 C 02/26/25 09:43 Pulse 85 02/26/25 09:43 Respiratory Rate 20 02/26/25 09:43 Blood Pressure 103/58 L 02/26/25 09:43 Pulse Oximetry 97 02/26/25 09:43 Temperature 36.6 C 02/26/25 09:43 Temperature Source Oral 02/26/25 09:43 Pulse 85 02/26/25 09:43 Respiratory Rate 20 02/26/25 09:43 Blood Pressure 103/58 L 02/26/25 09:43 Blood Pressure Position Sitting 02/26/25 09:43 Pulse Oximetry 97 02/26/25 09:43 Oxygen Delivery Method Room Air 02/26/25 09:43 Oxygen Flow Rate 0 02/26/25 09:43 Pain Level 0 02/26/25 09:43 Medical Decision Making Patient is a pleasant 85-year-old gentleman, accompanied by his , past medical history significant for multiple sclerosis, hypertension, aortic aneurysm, anxiety, depression, presenting today with chief complaint of right knee and ankle pain after fall. He reports that about 630 this morning he was getting up to the restroom did not yet have his brace on to help prevent his foot drop. He was using his walker as he typically does but states that the right leg gave out causing him to fall. He believes that the leg was pulled laterally and he had a sudden onset of right knee pain associated with him landing on the knee. However, he states a few hours later and the ankle began to be uncomfortable as well. He did question if he may have had some change in strength in this leg but states that it is difficult to assess given the chronic weakness as well as the new discomfort. On exam, patient appears non-toxic. He has some chronic appearing muscle wasting. Neurologically, intact aside from the RLE. Normal CN. Tremor to the right hand, they report at baseline. Cognition intact. Exam of the RLE signficant for muscle wasting, particularly at the thigh. No ecchymosis, swelling or tenderness at the right knee. No joint line tenderness. Ligamentously intact. He has difficulty with flexion at the hip- able to do but leg goes more laterally which he and report is baseline. Exam of the right nakle signifcant for pain and swelling, maximal over meseret lateral malleolus. 2+ distla pulses. Sensation intact. Pain is also over the ATFL. No pain in the foot. No tenderness along the proxmial fibula at head or neck. No pain over meseret 5th metatarsal. Ankle has chronic drop- unchanged per patient and family. had initially questioned possible stroke as he was confused immediately after the fall. However, patient is able to report full memory of the fall and the mechanism of fall. He was shaken up by the fall and after having a sip of water, the perceived confusion improved. Again, he did not strike his head, no CROCKER. No new neurologic deficit- reports chronic weakness in the RLE. After lengthy discussion, it is clear the CVA is not on the ddx, concerned for injury primarily to the right ankle. The pain int he knee is imrpoved but no continued pain. Will obtain XR of both. IMPRESSION: 1. Nondisplaced distal right fibular fracture at the level of the ankle joint. 2. On the lateral view, there are few tiny densities anterior to the ankle joint. These may have arisen from the distal tibia or anterior fibula. MPRESSION: 1. There is no acute fracture or dislocation. 2. There is a small joint effusion. This may reflect internal derangement. Follow-up as clinically appropriate. Patient does have a distal fibular fracture. Discussed this with the patient and his . Plan for boot, orthopedic follow-up. No involvement of the knee. Will reach out to Dr. Pedroza as well as covering for orthopedics. Of this case particular complicated given the patient's weakness and ambulatory dysfunction at baseline. He is agreeable to palliative care referral which I will place. He also reports that he has been having increased muscle spasms since we initially evaluated him. Historically, he has had issues with this in the affected leg and has used baclofen although he had been recently cut back by his neurology team with concern for long-term consequences. However, in the acute setting is agreeable to using baclofen again as he has tolerated this well and has further at home. Will give a 10 mg dosing now for his muscle spasms. Orthopedics agrees with plan for boot and continuation with the walker. Patient's plan is to obtain a wheelchair based on his mobility limitations at baseline. We did discuss referral to palliative care which he and his are both agreeable to, referral has been sent. Encourage rest, ice, elevation. Tylenol and ibuprofen as needed for discomfort. He may use the baclofen as previously prescribed, patient reports that he does have at least a months worth at home, for any further muscle spasms. I will have him follow-up with orthopedics for continued monitoring of his fracture. Return precautions discussed. All his questions and concerns were addressed and they are in agreement this plan. [facility] All Active Problems (Updated 02/26/25 @ 17:54 by Светлана Torres MD) Advanced care planning/counseling discussion (Acute) Palliative care encounter (Acute) Recurrent falls (Acute) Contusion of knee (Acute) Fracture of distal end of fibula (Acute) Post-nasal drip (Acute) Great toe pain (Acute) Seborrheic keratoses (Acute) Constipation (Acute) Urinary retention (Acute) Ganglion cyst of tendon sheath of right hand (Acute) Tremor (Acute) 11/2021-history of benign tremor of upper extremity. Likely iatrogenic and related to sertraline-resolved with sertraline discontinued External hemorrhoid (Acute) Adenomatous colon polyp (Acute) 03/30/[address] Jaci Hill, [facility], Villous/Tubulovillous Adenoma/Sessile Serrated Adenoma. Many large diverticula throughout the colon, because of diverticula, Dr Hill does not recommend further colonoscopies. Abdominal aortic aneurysm (Acute 02/06/08) US 07/10 3.1 x 3.6 cm. Stable . Check yearly 11/2021-followed by [facility] vascular surgery, 4.1 cm, yearly ultrasound at 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 neurology Peripheral neuralgia (Acute 02/06/08) Gall bladder polyp (Acute 05/23/13) Liver cyst (Acute) noted on MRI FA 03/08. F/U CT at [facility] stable on US 07/10 Depressive disorder (Acute 11/23/13) Medical History Multiple sclerosis Hypertension Aortic aneurysm Anxiety Depression Alcoholism (11/23/13) Cortical cataract of left eye Nuclear sclerotic cataract of left eye Cortical cataract of right eye Nuclear sclerotic cataract of right eye Surgical History Status post cataract extraction and insertion of intraocular lens of right eye (05/27/18) Status post cataract extraction and insertion of intraocular lens of left eye (06/10/18) Status post cataract extraction and insertion of intraocular lens of right eye (05/27/18) Family History Mother No problems noted. Father Heart disease Hyperlipidemia Sister Diabetes Brother No problems noted. Grandfather No problems noted. Grandfather No problems noted. Grandmother No problems noted. Grandmother No problems noted. Social History Smoking/Tobacco Use Status: Former Tobacco Use tobacco type: cigarettes and pipe Quit Date: 07/26/93 Tobacco: How many years used: 33 Second Hand Exposure: Yes Smoking risk assessment performed?: Yes Alcohol Intake: former Drug use: Never Substance use type: does not use Household members: spouse and children Housing: house Communication Needs: None Do you need help understanding health information?: Never Pets and animals: Yes Pets and animals: cat(s) and dog(s) Sexually active: No Do you think of yourself as: straight/heterosexual Current gender identity: male What is your relationship status?: How often do you talk on the phone with friends or family?: never How often do you get together with friends or relatives?: never Do you belong to any clubs or organized social groups?: no Panel score (0-1 are the most socially isolated patients): 1 What type of physical activity do you participate in: bicycling Duration: 45-60 minutes/day Frequency: 5-6 times per week Hannah/Latter Day: No preference Special hannah needs: No Seatbelt use: always Helmet use: No Drive intox or ride w/intox driver starting gate: No Do you feel safe at home: Yes Do you feel safe in your relationship?: Yes
--- NOTE | 2025-02-26 11:58 | DI.RAD_ITS ---
Exam(s) XR ANKLE RT COMPLETE EXAM: XR ANKLE RT COMPLETE CLINICAL HISTORY: fall, lateral pain. TECHNIQUE: 2D digital imaging was performed of the right ankle. Three images were obtained. AP, lateral and oblique views were obtained. COMPARISON: No exams were available for comparison FINDINGS: BONES: There is an acute nondisplaced fracture through the distal fibula at the level of the ankle joint. On the lateral view, there are few tiny osseous densities anterior to the ankle joint. The site of origin may be the distal tibia or anterior fibula. No bony destructive lesion is seen. JOINTS: The ankle mortise is normally aligned. SOFT TISSUE: There is soft tissue swelling of the ankle laterally. IMPRESSION: 1. Nondisplaced distal right fibular fracture at the level of the ankle joint. 2. On the lateral view, there are few tiny densities anterior to the ankle joint. These may have arisen from the distal tibia or anterior fibula. DATA REPOSITORY: RADIATION DOSE DELIVERED:
--- NOTE | 2025-02-26 11:58 | DI.RAD_ITS ---
Exam(s) XR KNEE RT 4V AP,LAT,AYSE,PAT EXAM: XR KNEE RT 4V AP,LAT,AYSE,PAT CLINICAL HISTORY: fall. TECHNIQUE: 2D digital imaging was performed of the right knee. Four views obtained. Merchant, AP, lateral and PA tunnel views were obtained. COMPARISON: CR CHEST 2 VIEWS PA,LAT from 03/04/2009 FINDINGS: BONES: No acute fracture is present. No bony destructive lesion is seen. There is an enthesophyte at the superior patella. JOINTS: The knee is normally aligned. There is a small suprapatellar joint effusion. SOFT TISSUE: Normal. IMPRESSION: 1. There is no acute fracture or dislocation. 2. There is a small joint effusion. This may reflect internal derangement. Follow-up as clinically appropriate. DATA REPOSITORY: RADIATION DOSE DELIVERED:
[2025-02-26] MEDS: Baclofen 10 MG TAB PO (13:15)
== END 2025-02-26 13:48 | disposition home or self-care (01) ==
PROVIDERS: Emergency Provider Physician Assistant; PCP Family Medicine
DX: S82.831A Other fracture of upper and lower end of right fibula, initial encounter for closed fracture (principal); S80.01XA Contusion of right knee, initial encounter; G35 Multiple sclerosis; I10 Essential (primary) hypertension; E78.00 Pure hypercholesterolemia, unspecified; Z79.82 Long term (current) use of aspirin; W18.39XA Other fall on same level, initial encounter; Y93.01 Activity, walking, marching and hiking
CPT/HCPCS: 99283; 73564; 73610

== ENCOUNTER 2025-03-09 10:40 | Outpatient (CLI) | payer MEDICARE, SELFPAY ==
--- NOTE | 2025-03-09 09:05 | DI.RAD_ITS ---
Exam(s) XR ANKLE RT COMPLETE EXAM: XR ANKLE RT COMPLETE CLINICAL HISTORY: F/U R ANKLE FX. TECHNIQUE: 2D digital imaging was performed. Three views. COMPARISON: CR XR ANKLE RT COMPLETE from 02/26/2025 FINDINGS: BONES: Stable alignment of lateral malleolar fracture. Small bony fragment again noted fracture from the anterior distal tibia. No bony destructive lesion is seen. Bones appear osteopenic from disuse. JOINTS: The ankle mortise is normally aligned. SOFT TISSUE: Swelling around the lateral malleolus. IMPRESSION: Stable alignment of distal fibular and distal anterior tibial fractures. DATA REPOSITORY: RADIATION DOSE DELIVERED:
== END 2025-03-09 10:41 | disposition home or self-care (01) ==
LOC: DIORS 10:41
PROVIDERS: PCP Family Medicine; Referring Provider Family Medicine; Visit Provider Physician Assistant
DX: S82.831A Other fracture of upper and lower end of right fibula, initial encounter for closed fracture (principal); S89.391A Other physeal fracture of lower end of right fibula, initial encounter for closed fracture; X50.1XXA Overexertion from prolonged static or awkward postures, initial encounter
CPT/HCPCS: 99213; 73610

== ENCOUNTER 2025-04-11 14:44 | Outpatient (CLI) | payer MEDICARE, SELFPAY ==
--- NOTE | 2025-04-11 13:00 | DI.RAD_ITS ---
Exam(s) XR ANKLE RT COMPLETE EXAM: XR ANKLE RT COMPLETE CLINICAL HISTORY: evaluate fracture. TECHNIQUE: 2D digital imaging was performed of the right ankle. Three images were obtained. AP, lateral and oblique views were obtained. COMPARISON: CR XR ANKLE RT COMPLETE from 03/09/2025 FINDINGS: BONES: There is no change in alignment of the distal right fibular fracture. The bones are osteopenic. The osseous fragment at the anterior tibia are again noted. No bony destructive lesion is seen. JOINTS: The ankle mortise is normally aligned. SOFT TISSUE: There is soft tissue swelling around the ankle laterally. IMPRESSION: Stable alignment of the distal fibular fracture. DATA REPOSITORY: RADIATION DOSE DELIVERED:
== END 2025-04-11 14:45 | disposition home or self-care (01) ==
LOC: DIORS 14:45
PROVIDERS: PCP Family Medicine; Visit Provider Student in an Organized Health Care Education/Training Program
DX: S82.61XD Displaced fracture of lateral malleolus of right fibula, subsequent encounter for closed fracture with routine healing (principal); W19.XXXD Unspecified fall, subsequent encounter
CPT/HCPCS: 99214; 73610

== ENCOUNTER → 2025-05-29 00:47 | Outpatient (CLI) | payer MEDICARE, SELFPAY ==
--- NOTE | 2025-05-29 06:45 | DI.DEXA_ITS ---
Exam(s) XR DEXA BONE DENSITY W/WO HANNAH EXAM: XR DEXA BONE DENSITY W/WO HANNAH CLINICAL HISTORY: ankle fracture; ostepenia on xray,DISORDER BONE DENSITY,M85.88 TECHNIQUE: COMPARISON: No exams were available for comparison FINDINGS: Lateral Spine Image: Unremarkable. No compression deformities identified. Left hip: Total T-Score: -2.6 Total Z-Score: -1.3 T- and Z-scores: The findings are consistent with osteoporosis. Lumbar Spine: Total T-Score: -1.4 Total Z-Score: -0.1 T- and Z-scores: The findings are consistent with osteopenia. There is osteoporosis in the left forearm with a total T-score of -3.2 and Z- score of -1.0. IMPRESSION: Osteoporosis in the left hip and left forearm.
== END ==
LOC: DI 00:47
PROVIDERS: PCP Family Medicine; Visit Provider Family Medicine
DX: M85.88 Other specified disorders of bone density and structure, other site (principal)
CPT/HCPCS: 77080

== ENCOUNTER → 2025-07-03 00:43 | Outpatient (CLI) | payer MEDICARE, SELFPAY ==
[2025-07-03] MEDS: Normal Saline Flush 10 ML SYR IVP (10:40)
[2025-07-03] MEDS: Normal Saline - Diluent 50 ML VIAL IJ (10:40)
[2025-07-03] MEDS: Omnipaque 350 MG/ML 500 ML BTL-Imaging package IJ (10:41)
--- NOTE | 2025-07-03 10:46 | DI.CT_ITS ---
Exam(s) CT ABDOMEN PELVIS CTA EXAM: CT ABDOMEN PELVIS CTA CLINICAL HISTORY: AAA, PRE OP EVAR. TECHNIQUE: Imaging Protocol: Axial CT angiography was performed with multi- slice acquisition and multi-planar and/or 3D reconstructions. CONTRAST MATERIAL: Intravenous: Omnipaque 350 Contrast volume:100 Oral: / no COMPARISON: CT CT THORAX ABD/PEL CTA from 12/31/2021 FINDINGS: Aorta: Multi focal irregular atheromatous plaque. Distal descending aorta measures 3.2 cm. The aorta tapers to 18 1.9 x 2.3 cm just above the level of the renal arteries. Fusiform distal abdominal aortic aneurysm with significant mural thrombus. Measuring 8 cm in length by 5.2 cm transverse by 6.8 cm AP. Celiac [place]: Calcification at the origin but no evidence of significant stenosis. Aneurysmal dilatation again noted 1.3 cm from the origin measuring 1.5cm. This has increased from the previous exam where it was measured at 1.3 cm. SMA: No proximal portion appears normal. There is again noted to be a focal dissection flap distally where there is also some calcification. The distal branches appear patent. Renal arteries the main renal arteries show heavy calcification proximally with at approximately 50 percent stenosis on the left and less than 50 percent stenosis on the right. There are small accessory renal arteries to the upper poles. Common iliac Arteries: Atherosclerotic calcification without no evidence of aneurysm or significant stenosis. External iliac arteries: Atherosclerotic calcifications. Approximate 50 percent stenosis proximally. Common Femoral Arteries: Atherosclerotic calcification but no evidence of significant stenosis. Superficial femoral arteries: Occluded bilaterally. Profunda femoral arteries: No significant stenosis. Venous structures: Patent. Lung bases:No acute findings. Small hiatal hernia. Liver: Normal size. Normal density. Multiple liver cysts are again noted. No suspicious mass. Gallbladder and biliary tract: No evidence of calculi. No gallbladder wall thickening. No biliary dilation. Pancreas: Normal density, no abnormal calcifications or inflammatory process. Spleen: Normal. Kidneys: Normal size, contour and axis. No obstructive uropathy. Bilateral renal cysts again noted. No suspicious masses seen. Small nonobstructing stone noted at lower pole of the left kidney. Adrenal glands: No masses seen. Bladder: No gross wall thickening. No evidence of calculi. No evidence of mass. Bowel: There is a diverticulum of the descending duodenum. There is extensive colonic diverticulosis. No evidence of diverticulitis. Moderate to increased quantity of stool. Moderate quantity of stool. Status post appendectomy. No obstruction or bowel wall thickening. Peritoneal cavity: No ascites. No focal collection. No mesenteric inflammatory response. Lymph nodes: Within normal limits. Reproductive: mildly enlarged prostate. Soft Tissues:Unremarkable. Bones: Degenerative changes and scoliosis. No acute findings. IMPRESSION: Fusiform infrarenal abdominal aortic aneurysm with mural thrombus measuring 5.2 x 6.8 x 8 cm. 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 Other chronic findings as mentioned above. RADIATION DOSE DELIVERED: 1,635.06mGy.cm Total DLP DATA REPOSITORY: All CT scans at this facility are submitted to the National Radiology Data Registry (NRDR) Dose Index Registry (DIR) with the [employer] ([employer]). RADIATION OPTIMIZATION: All CT scans at this facility use at least one of these dose optimization techniques: automated exposure control; mA and/or kV adjustment per patient size (includes targeted exams where dose is matched to clinical indication); or iterative reconstruction.
== END ==
PROVIDERS: Surgery Vascular Surgery; PCP Family Medicine; Visit Provider Family Medicine
DX: Z01.818 Encounter for other preprocedural examination (principal); I71.40 Abdominal aortic aneurysm, without rupture, unspecified
CPT/HCPCS: 74174; 82565